=== PATIENT | female | born 1940 | race Caucasian/White ===

== ENCOUNTER 2017-10-25 08:31 | Inpatient (IN) | payer MEDICARE ==
[2017-10-25] MEDS ORDERED: Ondansetron INJ* 2 MG/ML VIAL IV ONE (08:43)
[2017-10-25] MEDS ORDERED: NS 0.9% 1000 ML* 1,000 ML IV ONE (08:43)
[2017-10-25] MEDS ORDERED: Ondansetron INJ* 2 MG/ML VIAL ONE (08:46)
[2017-10-25 09:14] LABS: ABS Basophils 0.1 10^3/ul (0-0.2); ABS Eosinophils 0.1 10^3/ul (0-0.6); ABS Lymphocytes 1.1 10^3/ul (1.0-4.8); ABS Monocytes 0.4 10^3/ul (0-0.8); ABS Neutrophils 4.6 10^3/ul (1.5-7.7); ABS Nucleated RBC 0 10^3/ul; Eosinophil % 2.2 % (0-6); Hematocrit 42 % (35-47); Hemoglobin 14.2 g/dl (12.0-16.0); Mean Corpuscular HGB Conc 34 g/dl (31-36); Mean Corpuscular Hemoglobin 30 pg (27-31); Mean Corpuscular Volume 88 fL (80-97); Mean Platelet Volume 9 um3 (7.4-10.4); Nucleated Red Blood Cells % 0.1; Platelet Count 188 10^3/ul (150-450); Red Blood Count 4.77 10^6/ul (4.0-5.4); Red Cell Distribution Width 14 % (10.5-15); White Blood Count 6.2 10^3/ul (3.5-10.8)
[2017-10-25 09:30] LABS: EGFR Non-African American 72.9 (>60)
--- NOTE | 2017-10-25 09:56 | RAD ---
HISTORY: Head trauma, fall COMPARISONS: None TECHNIQUE: Multiple contiguous axial CT scans were obtained of the head without intravenous contrast. FINDINGS: HEMORRHAGE/INFARCT: There is subarachnoid hemorrhage further described below. Elsewhere, there is no hemorrhage or acute infarct. MASSES/SHIFT: There is no mass or shift. EXTRA-AXIAL SPACES: There is a small amount of subarachnoid hemorrhage along the right frontal lobe and left parietal lobe, with a minimal amount pericallosal and right posterior temporal subarachnoid hemorrhage. There is no hemorrhage noted within the basal cisterns. SULCI AND VENTRICLES: There is a trace amount of intraventricular hemorrhage in the occipital horn of the right lateral ventricle.. CEREBRUM: There is hypoattenuation of the periventricular and subcortical white matter. BRAINSTEM: There are no focal parenchymal abnormalities. CEREBELLUM: There are no focal parenchymal abnormalities. VESSELS: The vessels are grossly normal. PARANASAL SINUSES: The paranasal sinuses are clear. ORBITS: The orbits are unremarkable. BONES AND SOFT TISSUE: There is soft tissue swelling along the right frontal scalp. OTHER: None IMPRESSION: 1. THERE IS A SMALL AMOUNT OF SUBARACHNOID HEMORRHAGE, WITH A SMALL AMOUNT OF INTRAVENTRICULAR HEMORRHAGE IN THE OCCIPITAL HORN OF THE RIGHT LATERAL VENTRICLE. THE PATTERN IS NONANEURYSMAL AND IS LIKELY RELATED TO THE HISTORY OF RECENT TRAUMA. 2. CHRONIC SMALL VESSEL ISCHEMIC CHANGES. 3. PRELIMINARY FINDINGS WERE DISCUSSED WITH DR. LUQUE AT APPROXIMATELY 9:50 AM ON OCTOBER 25, 2017.
--- NOTE | 2017-10-25 10:01 | RAD ---
INDICATION: Trauma. COMPARISON: There are no prior studies available for comparison. TECHNIQUE: Contiguous axial sections were obtained from the skull base through the T1 vertebra. Images were reconstructed in the sagittal and coronal planes. FINDINGS: The vertebra are in normal alignment. No prevertebral soft tissue swelling or fracture is seen. At the C3-C4 level there is mild posterior uncinate process spurring and hypertrophic changes within the facet joints. No significant spinal canal narrowing is present. There is [id number] neural foraminal narrowing on the right side. At the C4-C5 level there is mild posterior uncinate process spurring and hypertrophic changes within the facet joints. No significant spinal canal narrowing is present. There is mild to moderate neural foraminal narrowing on the right side. The C5-C6 level there is posterior uncinate process spurring which causes mild spinal canal narrowing on the left side. There is mild neural foraminal narrowing on the right side and moderate neural foraminal narrowing on the left side. At the C6-C7 level there is posterior uncinate process spurring. No significant spinal canal narrowing is present. There is moderate bilateral neural foraminal narrowing. IMPRESSION: 1. NO EVIDENCE FOR FRACTURE OR SUBLUXATION. 2. MODERATE CERVICAL SPONDYLOSIS.
[2017-10-25] MEDS ORDERED: Tetan/Diph/Pertus SYR(Tdap)* 0.5 ML SYR(BOOSTRIX) use SYR IM ONE (11:03)
[2017-10-25] MEDS: Acetaminophen TAB* 325 MG PO PRN ×3 (13:20→23:46)
[2017-10-25] MEDS: Ondansetron INJ* 2 MG/ML VIAL IV PRN ×2 (13:23→23:46)
--- NOTE | 2017-10-25 13:23 | RAD ---
Indication: Fall with loss of consciousness. Pelvis and hip pain. Post RIGHT total hip replacement. Comparison: March 16, 2010 radiographs. Technique: Multidetector CT pelvis without contrast. Multiplanar reformation with bone algorithm. Report: Artifact from the RIGHT total hip prosthesis. No RIGHT hip periprosthetic fracture or [place] LEFT hip fracture evident. Negative for pelvic fracture or articular malalignment. Negative for soft tissue edema or hematoma. Osteophytosis and advanced axial joint space narrowing of the LEFT hip with associated partial loss of femoral head sphericity and significant acetabular roof subchondral sclerosis and cystic change. Lumbar sacral spine degenerative spondylosis and facet joint osteoarthritis. Minimal grade 1 degenerative L4-L5 anterolisthesis. Colonic diverticulosis. Negative for free fluid within the [id number]. Small fat-containing umbilical and bilateral inguinal hernias without inflammatory change. Negative for dilatation of the distal ureters. Post hysterectomy. Unremarkable adnexal regions. IMPRESSION: No CT evidence for fracture. Negative for joint dislocation. No stigmata of RIGHT hip prosthesis loosening. 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
[2017-10-25] MEDS ORDERED: Perflutren Lipid Microsphere* 3 ML VIAL ONE (14:54)
--- NOTE | 2017-10-25 16:07 | ECHO ---
Patient: LINDA CANTU [facility] Rec#: [id number] : 1940 Date: 10/25/2017 Age: 77y Height: 162.56 cm / 64.0 in Weight: 82.55 kg / 181.9 lbs Sex: F BSA: 1.88 Room#: ICU8 Admit Date#: 10/25/2017 Type: Inpatient Referring: Desean Franco NP Reading: Lisa Vásquez MD Gristmiller: Alicia Wolf RDCS CC: Reynold Oneal MD Transthoracic Echocardiogram Indication: Syncope BP: 115/68 HR: 87 Rhythm: NSR with PVCs Findings History: Syncope. HTN,s/p lumpectomy for breast cancer. Technical Comments: The study quality is fair. Definity used to enhance images. The study is technically limited due to patient body habitus. Left Ventricle: The left ventricular chamber size is normal. Global left ventricular wall motion and contractility are within normal limits. There is normal left ventricular systolic function. The estimated ejection fraction is 55-60%. Abnormal left ventricular diastolic function is observed. Left Atrium: The left atrium is mildly dilated. Right Ventricle: The right ventricular cavity size is normal. The right ventricular global systolic function is normal. Right Atrium: The right atrial cavity size is normal. Aortic Valve: The aortic valve is trileaflet. There is no evidence of aortic valve thickening. There is no evidence of aortic regurgitation. There is no evidence of aortic stenosis. Mitral Valve: The mitral valve leaflets are mildly thickened. There is mild mitral regurgitation. There is no evidence of mitral stenosis. Tricuspid Valve: The tricuspid valve leaflets are normal. There is mild tricuspid regurgitation. There is evidence of mild pulmonary hypertension. There is no tricuspid stenosis. Pulmonic Valve: The pulmonic valve appears normal. Pericardium: A pericardial fat pad is visualized. Aorta: There is no dilatation of the ascending aorta. There is no dilatation of the aortic arch. There is no dilation of the aortic root. Pulmonary Artery: The main pulmonary artery appears normal. Venous: The venous system is not well visualized. Summary: There was not any prior study for comparison. Conclusions The left ventricular chamber size is normal. The left ventricular chamber size is normal. There is normal left ventricular systolic function. The estimated ejection fraction is 55-60%. The left atrium is mildly dilated. There is mild mitral regurgitation. There is mild tricuspid regurgitation. There is evidence of mild pulmonary hypertension. Measurements Name Value Normal Range RVIDd (AP) 2D 3 cm (0.9 - 2.6) RVDdMajor (2D) 3.2 cm (2.2 - 4.4) RAd ISD 4CH 4.8 cm (3.4 - 4.9) RA (A4C)W 3.3 cm (2.9 - 4.6) IVSd (2D) 0.9 cm (0.6 - 1) LVPWd (2D) 0.9 cm (0.6 - 1) LVIDd (2D) 3.9 cm (3.6 - 5.4) LVIDs (2D) 2.9 cm - LV FS (2D) 25 % (25 - 45) Aortic Annulus 1.8 cm (1.4 - 2.6) Ao root diameter (2D) 3 cm (2.1 - 3.5) Ascending Ao 3.1 cm (2.1 - 3.4) Aortic arch 2.8 cm (1.8 - 3.4) Descending Ao 0.5 cm - LA dimension (AP) 2D 3.5 cm (2.3 - 3.8) LAd ISD 4CH 6.4 cm (2.9 - 5.3) LA ISD 4CH W 3.9 cm (2.5 - 4.5) Name Value Normal Range LA ESV SP 4CH (A/L) 63 ml - LA ESV SP 2CH (A/L) 81 ml - LA ESV BP (A/L) 75 ml - LA ESV BP (A/L) index 39.86 ml/m2 - LA ESV SP 4CH (MOD) 59 ml - LA ESV SP 2CH (MOD) 79 ml - Name Value Normal Range MV E-wave Vmax 1 m/sec - MV deceleration time 132 msec - MV A-wave Vmax 1.1 m/sec - MV E:A ratio 0.96 ratio - LV septal e' Vmax 0.1 m/sec - LV lateral e' Vmax 0.1 m/sec - LV E:e' septal ratio 10 ratio - LV E:e' lateral ratio 10 ratio - Name Value Normal Range AV Vmax 1.9 m/sec - AV VTI 43.3 cm - AV peak gradient 13.75 mmHg - AV mean gradient 7.45 mmHg - LVOT Vmax 1.3 m/sec - LVOT VTI 30.4 cm - LVOT peak gradient 7.21 mmHg - LVOT mean gradient 3.55 mmHg - Name Value Normal Range MR Vmax 3.5 m/sec - MR VTI 99 cm - Name Value Normal Range TR Vmax 2.6 m/sec - TR peak gradient 26 mmHg - RAP 8 mmHg - RVSP 34 mmHg - Name Value Normal Range PV Vmax 1 m/sec - PV peak gradient 3.95 mmHg -
--- NOTE | 2017-10-25 17:03 | ED ---
Giancarlo Toth Thomas, scribed for Wilberto Baeza MD on 10/25/17 at 0855 . Head Injury - HPI Summary HPI Summary: The patient is a 77 year old female presenting after she struck her head during an accidental fall that occurred this morning. She had loss of consciousness after striking her head. She has a laceration to her right eyebrow. She denies near-syncope, headache, chest pain, and palpitations before the fall. - History Of Current Complaint Chief Complaint: EDHeadInjury Stated Complaint: FALL, Time Seen by Provider: 10/25/17 08:41 Hx Obtained From: Patient Mechanism Of Injury: Fall From A Standing Position Onset/Duration: Started Hours Ago - onset this AM, Still Present Severity Initially: Mild Pain Intensity: 3 Pain Scale Used: 0-10 Numeric Location: Discrete At: - head Aggravating Factor(s): Other: - Unknown Alleviating Factor(s): Other: - Nothing Associated Signs And Symptoms: LOC Duration Unknown, Other: - Laceration (right elbow); NEGATIVE: near-syncope, BREWSTER, CP, palpitations - Allergies/Home Medications Allergies/Adverse Reactions: Allergies Allergy/AdvReac Type Severity Reaction Status Date / Time No Known Allergies Allergy Verified 10/25/17 08:41 Home Medications: Home Medications Calcium Carbonate/Vitamin D3 [Calcium 600 + Vit D Tablet] 1 each PO DAILY [History Confirmed 10/25/17] Lisinopril/HCTZ 20/12.5(NF) [Zestoretic 20/12.5(NF)] 1 tab PO DAILY 10/25/17 [ History Confirmed 10/25/17] Omeprazole CAP* [Prilosec CAP* 20 MG] 20 mg PO DAILY 10/25/17 [History Confirmed 10/25/17] amLODIPine TAB* [Norvasc 5 mg TAB*] 5 mg PO DAILY 10/25/17 [History Confirmed ] PMH/Surg Hx/FS Hx/Imm Hx Endocrine/Hematology History: Reports: Hx Anemia - DAILY IRON FOR Denies: Hx Diabetes Cardiovascular History: Reports: Hx Hypertension - ON MEDICATION FOR Denies: Hx Pacemaker/ICD History: Reports: Hx Kidney Infection - FALL-2013 Denies: Hx Renal Disease Sensory History: Reports: Hx Cataracts - BILATERAL, Hx Contacts or Glasses - GLASSES Denies: Hx Hearing Aid Opthamlomology History: Reports: Hx Cataracts - BILATERAL, Hx Contacts or Glasses - GLASSES Psychiatric History: Denies: Hx Panic Disorder - Cancer History Cancer Type, Location and Year: Rt BREAST - LUMPECTOMY Hx Chemotherapy: No Hx Radiation Therapy: Yes - [facility] - Surgical History Surgery Procedure, Year, and Place: VEIN STRIPPING BILATERAL. HYSTERECTOMY. TONSILECTOMY. Rt BREAST LUMPECTOMY- W/ 1 LYMPH NODE REMOVED -2010- MALIGNANT W / RADTION TREATMENT ALSO Lt LUMPECTOMY - - BENIGN. MOLE - PRE CANCEROUS REMOVED FROM Lt EAR Hx Anesthesia Reactions: No Infectious Disease History: No Infectious Disease History: Denies: Traveled Outside the [place] in Last 30 Days - Family History Known Family History: Positive: Other - Patient denies relevant FHx - Social History Lives: With Family Alcohol Use: Occasionally Substance Use Type: Reports: None Smoking Status (MU): Never Smoked Tobacco Review of Systems Negative: Fever Negative: Palpitations, Chest Pain Neurological: Other - Head injury, loss of consciousness Negative: Headache, Syncope - near Positive: Other - Laceration to right eyebrow All Other Systems Reviewed And Are Negative: Yes Physical Exam - Summary Physical Exam Summary: VITAL SIGNS: Reviewed. GENERAL: Patient is a well-developed and nourished female who is lying comfortable in the stretcher. Patient is not in any acute respiratory distress. HEAD AND FACE: There is an approximately 1 cm laceration to the right eyebrow. There is some swelling and tenderness to this area. No ecchymosis, hematomas or skull depressions. No sinus tenderness. EYES: PERRLA, EOMI x 2, No injected conjunctiva, no nystagmus. EARS: Hearing grossly intact. Ear canals and tympanic membranes are within normal limits. MOUTH: Oropharynx within normal limits. NECK: Supple, trachea is midline, no adenopathy, no JVD, no carotid bruit, no c- spine tenderness, neck with full ROM. CHEST: Symmetric, no tenderness at palpation LUNGS: Clear to auscultation bilaterally. No wheezing or crackles. CVS: Regular rate and rhythm, S1 and S2 present, no murmurs or gallops appreciated. ABDOMEN: Soft, non-tender. No signs of distention. No rebound no guarding, and no masses palpated. Bowel sounds are normal. EXTREMITIES: FROM in all major joints, no edema, no cyanosis or clubbing. NEURO: Alert and oriented x 3. No acute neurological deficits. Speech is normal and follows commands. SKIN: Dry and warm Triage Information Reviewed: Yes Vital Signs On Initial Exam: Initial Vitals Temp Pulse Resp BP Pulse Ox 97.4 F 66 20 156/76 96 10/25/17 08:41 10/25/17 08:41 10/25/17 08:41 10/25/17 08:41 10/25/17 08:41 Vital Signs Reviewed: Yes Procedures - Laceration/Wound Repair 1 Location: Other - right eyebrow Description: Linear Irrigated w/ Saline (ccs): 500 Closure: Single Layer Suture Type: Nylon - 5-0 Number of Sutures: 6 Diagnostics - Vital Signs Vital Signs Temp Pulse Resp BP Pulse Ox 10/25/17 08:41 97.4 F 66 20 156/76 96 - Laboratory Lab Results: Lab Results 10/25/17 10/25/17 Range/Units 09:03 09:03 WBC 6.2 (3.5-10.8) 10^3/ul RBC 4.77 (4.0-5.4) 10^6/ul Hgb 14.2 (12.0-16.0) g/dl Hct 42 (35-47) % MCV 88 (80-97) fL MCH 30 (27-31) pg MCHC 34 (31-36) g/dl RDW 14 (10.5-15) % Plt Count 188 (150-450) 10^3/ul MPV 9 (7.4-10.4) um3 Neut % (Auto) 73.9 (38-83) % Lymph % (Auto) 17.0 L (25-47) % Craig % (Auto) 5.9 (1-9) % Eos % (Auto) 2.2 (0-6) % Baso % (Auto) 1.0 (0-2) % Absolute Neuts (auto) 4.6 (1.5-7.7) 10^3/ul Absolute Lymphs (auto) 1.1 (1.0-4.8) 10^3/ul Absolute Monos (auto) 0.4 (0-0.8) 10^3/ul Absolute Eos (auto) 0.1 (0-0.6) 10^3/ul Absolute Basos (auto) 0.1 (0-0.2) 10^3/ul Absolute Nucleated RBC 0 10^3/ul Nucleated RBC % 0.1 Sodium 134 (133-145) mmol/L Potassium 4.0 (3.5-5.0) mmol/L Chloride 102 (101-111) mmol/L Carbon Dioxide 26 (22-32) mmol/L Anion Gap 6 (2-11) mmol/L BUN 16 (6-24) mg/dL Creatinine 0.77 (0.51-0.95) mg/dL Est GFR ( Amer) 93.7 (>60) Est GFR (Non-Af Amer) 72.9 (>60) BUN/Creatinine Ratio 20.8 H (8-20) Glucose 117 H (70-100) mg/dL Calcium 9.5 (8.6-10.3) mg/dL Total Bilirubin 0.40 (0.2-1.0) mg/dL AST 16 (13-39) U/L ALT 9 (7-52) U/L Alkaline Phosphatase 78 (34-104) U/L Total Creatine Kinase 41 (10-223) U/L Troponin I 0.00 (<0.04) ng/mL Total Protein 7.1 (6.4-8.9) g/dL Albumin 4.1 (3.2-5.2) g/dL Globulin 3.0 (2-4) g/dL Albumin/Globulin Ratio 1.4 (1-3) Result Diagrams: 10/25/17 09:03 10/25/17 09:03 Lab Statement: Any lab studies that have been ordered have been reviewed, and results considered in the medical decision making process. - CT CT Brain CT Interpretation: Positive (See Comments) - 1. THERE IS A SMALL AMOUNT OF SUBARACHNOID HEMORRHAGE, WITH A SMALL AMOUNT OF INTRAVENTRICULAR HEMORRHAGE IN THE OCCIPITAL HORN OF THE RIGHT LATERAL VENTRICLE. THE PATTERN IS NONANEURYSMAL AND IS LIKELY RELATED TO THE HISTORY OF RECENT TRAUMA. 2. CHRONIC SMALL VESSEL ISCHEMIC CHANGES. Dr. Baeza has reviewed this report. CT Interpretation Completed By: Radiologist CT C-Spine CT Interpretation: No Acute Changes - 1. NO EVIDENCE FOR FRACTURE OR SUBLUXATION. 2. MODERATE CERVICAL SPONDYLOSIS. Dr. Baeza has reviewed this report. CT Interpretation Completed By: Radiologist - EKG 09:02 Cardiac Rate: NL EKG Rhythm: Sinus Rhythm - at 72 BPM EKG Interpretation: No ST elevations. Head Injury Course/Dx Assessment/Plan: The patient is a 77 year old female presenting after she struck her head during an accidental fall that occurred this morning. She had loss of consciousness after striking her head. She has a laceration to her right eyebrow. Test results are without significant abnormalities. CT Brain shows 1. THERE IS A SMALL AMOUNT OF SUBARACHNOID HEMORRHAGE, WITH A SMALL AMOUNT OF INTRAVENTRICULAR HEMORRHAGE IN THE OCCIPITAL HORN OF THE RIGHT LATERAL VENTRICLE. THE PATTERN IS NONANEURYSMAL AND IS LIKELY RELATED TO THE HISTORY OF RECENT TRAUMA. 2. CHRONIC SMALL VESSEL ISCHEMIC CHANGES. CT C-Spine shows 1. NO EVIDENCE FOR FRACTURE OR SUBLUXATION. 2. MODERATE CERVICAL SPONDYLOSIS. I discussed the CT Head with Dr. Yañez, neurosurgery, who reports that he is not very concerned about the bleed. I repaired the laceration without any complications. Because of the history of trauma, syncope , and hemorrhagic CVA, I discussed the test results and findings with Dr. Curiel , who accepts the patient for admission. The patient is hemodynamically stable and alert and oriented x 3. - Diagnoses Differential Diagnosis/HQI/PQRI: Cerebral Contusion, Concussion With LOC, Contusion, Hematoma, Intracranial Bleed Provider Diagnoses: Hemorrhagic cerebrovascular accident (CVA), Mechanical fall, Laceration of face - Physician Notifications Discussed Care Of Patient With: Michael aYñez Time Discussed With Above Provider: 10:31 Instructed by Provider To: Other - I discussed the case with Dr. Yañez, neurosurgery. He recommends discharge. At 11:03, I consulted with Dr. Curiel, hospitalist, who will admit the patient. - Critical Care Time Critical Care Time: 75-104 min Discharge - Discharge Plan Condition: Stable Disposition: ADMITTED TO [facility] The documentation as recorded by the Giancarlo bustamante Thomas accurately reflects the service I personally performed and the decisions made by , Wilberto Baeza MD.
[2017-10-25 17:45] LABS: Urine Appearance Cloudy; Urine Blood Negative (Negative); Urine Color Yellow; Urine Ketones Negative (Negative); Urine Protein Negative (Negative); Urine Specific Gravity 1.011 (1.010-1.030); Urine Urobilinogen Negative (Negative)
--- NOTE | 2017-10-25 21:18 | HP ---
CC: Dr. Oneal; Dr. Yañez * HISTORY AND PHYSICAL: DATE OF ADMISSION: 10/25/17 PRIMARY CARE PROVIDER: Dr. Oneal. CONSULTING NEUROSURGEON: Dr. Yañez. ATTENDING PHYSICIAN WHILE IN THE HOSPITAL: Reynold Edward MD * (report dictated by Dseean Franco NP) CHIEF COMPLAINT: Fall. HISTORY OF PRESENT ILLNESS: Mrs. Byrd is a 77-year-old female patient. She carries a history of hypertension, breast cancer, anemia, and questionable history of nephrolithiasis. She comes into the ED today. She states yesterday she put up some curtains at home that were longer than what was normally she had hung up by her door. She was hungry this morning and her and her decided to go out to breakfast. She walked out the door. She remembers opening the door. The next thing she remembers she was in an ambulance. She states that she fell. She knew she had fallen because she had significant pain and swelling along the right side of her face. She denied any chest pain prior to or after the fall. She states that she was told that after the fall she sat up. The most pain she had was really in her right side of her head. She had a headache. She denied having again any chest pain prior to or after. She is unsure if she fainted or passed out. She states that she had no palpitations. She did not feel lightheaded before the fall, she said she just felt really hungry. She remembers like she was in the ambulance. She remembers getting driven into the hospital today. There has been no recent fevers, cough, chills. No vomiting or diarrhea and again no change in meds. She came into the ED. It was noted that she had a significant trauma in the right side of her face, she had a laceration just above her right eyebrow and it was sutured. In addition to this, it was also noted that she appeared to have intracranial hemorrhage and because of this we were asked to evaluate for admission. PAST MEDICAL HISTORY: Significant for; 1. Hypertension. 2. Breast cancer. 3. Anemia. 4. Question of nephrolithiasis. PAST SURGICAL HISTORY: 1. She has had a hysterectomy. 2. Appendectomy. 3. Right total hip replacement. 4. She has had bilateral lower extremity vein stripping. 5. She has had a right breast lumpectomy. HOME MEDICATIONS: According to list provided includes; 1. Omeprazole 20 mg daily. 2. Calcium 1 tablet p.o. daily. 3. Norvasc 5 mg daily. 4. Lisinopril/hydrochlorothiazide 1 tablet p.o. daily. ALLERGIES TO MEDICATIONS: Include no known drug allergies. FAMILY HISTORY: Mother had cancer as did her brother, and her father's history is unknown as he left when she was 17. SOCIAL HISTORY: She does not smoke, does not drink. Surrogate decision maker is her . REVIEW OF SYSTEMS: There was no documented fever. She denied having any significant weight change. She denies having any double vision. There is no ear discharge. She denies having any rhinorrhea. There is no sore throat. No thyroid enlargement. She denies having any chest pain. There is no palpitations. No shortness of breath. There is no abdominal pain. No nausea or vomiting. No dysuria. No frequency. There is no seizure. She does question of loss of consciousness. Review of 14 systems completed, all others negative. PHYSICAL EXAMINATION GENERAL: At this time, Mrs. Byrd is a 77-year-old female patient. She appears to be well nourished, well developed. She is sitting in the ED stretcher. She does not appear to be in any acute distress. VITAL SIGNS: Blood pressure 129/72, pulse 84, respirations 18, O2 sat 96%, and temperature 97.4. HEENT: Head: She does have again noted an abrasion and laceration just now sutured to the right orbital area just above the right eyebrow. There is ecchymosis there along the right eye and some swelling. The laceration is approximated, but otherwise atraumatic. Eyes: EOMs intact. Pupils are equal and reactive to light. Throat: Oral mucosa appears to be moist. No oropharyngeal erythema. NECK: Supple. LUNGS: Clear to auscultation bilaterally. No wheezes, rales, or rhonchi. HEART: Sounds S1 and S2. Regular rate and rhythm. No murmurs, rubs, or gallops. ABDOMEN: Soft. It was flat. Nontender. Bowel sounds were present. EXTREMITIES: Pulses were 2+ throughout. She is moving all 4 extremities with 5 /5 strength. NEUROLOGIC: The patient is awake. She is alert. She is oriented x3. Home Help Aide are equal. Tongue midline. [id number] and [id number] intact bilaterally. No gross focal deficits. SKIN: Intact with the exception she has laceration to the right orbital area. LABORATORY DATA: Today WBC of 6.2, RBC of 4.77, hemoglobin 14.2, hematocrit 42 , and platelet count of 188,000. Sodium is 134, potassium is 4, chloride of 102 , bicarbonate 26, BUN 16, creatinine 0.77, glucose 117, calcium 9.5, total bilirubin 0.4, AST 16, ALT 9, alkaline phosphatase 78, albumin of 4.1. IMAGING: She did have EKG obtained today, which revealed normal sinus rhythm, rate of 72. No ST elevation or T-wave inversions were noted. She did have brain CT. Impression: There is a small amount of subarachnoid hemorrhage with a small amount of intraventricular hemorrhage in the occipital horn of the right lateral ventricle. The pattern is nonaneurysmal and likely related to history of recent trauma. Chronic small vessel ischemic changes. Formal read and findings were discussed with Dr. Baeza. She did have a cervical spine CT obtained today that showed no evidence for fracture, subluxation, moderate cervical spondylosis. Old medical records reviewed. ASSESSMENT AND PLAN: Mrs. Byrd is a 77-year-old female patient coming into the ED today with complaints of a fall, now found to have a small intracranial hemorrhage. We were asked to evaluate for admission. She will be admitted under inpatient status for: 1. Intracranial hemorrhage. At this point, I will place the patient in ICU. She is neurologically intact thankfully and it is a small bleed, but I would want to watch closely in case there is any deterioration. We will maintain her blood pressure. I would like to try to keep it less than 160. We will monitor neuro checks routinely and again, we will get neurosurgical input. I did place a consult to them and consider repeat imaging in 24 hours to assess the stability of the bleed and we will continue to follow closely. 2. Question syncope. Again, she does not remember the fall. I question if she hit her head and became concussed and that is why she does not remember the fall, but she certainly could have syncopized. I do think she could have had syncope. I do think I am going to cycle at least 2 enzymes; heart enzymes, troponins. In addition to this, we will get an echo and orthostatics. 3. Right hip pain. She is now having some pain in the right hip. The right leg does not appear to be shortened or rotated, but I do think we should get a CT of the pelvis as she has had a right total hip replacement and that is where she is having pain. If there is any abnormalities with this, then certainly we will get in touch with Orthopedic Surgery. 4. Hypertension. Continue meds as prescribed. 5. Breast cancer. Follow up with primary. 6. Anemia. Her H and H is stable. We will monitor. 7. DVT prophylaxis. She will be placed on SCDs. 8. Code status. Full code. 9. Fluids, electrolytes, and nutrition. She can have a heart healthy diet. TIME SPENT: Time spent on the admission was 60 minutes, greater than half the time was spent [id number] with the patient obtaining my history of physical; the other half time was spent going over the plan of care with the patient and implementing plan of care. I did discuss the plan of care with my attending, Dr. Edward, in agreement. DESEAN FRANCO, YARA [id number]/[facility] #: [id number] JANIE
[2017-10-26 06:24] LABS: ABS Basophils 0 10^3/ul (0-0.2); ABS Eosinophils 0.1 10^3/ul (0-0.6); ABS Lymphocytes 1.3 10^3/ul (1.0-4.8); ABS Monocytes 0.5 10^3/ul (0-0.8); ABS Neutrophils 5.2 10^3/ul (1.5-7.7); ABS Nucleated RBC 0 10^3/ul; Eosinophil % 1.3 % (0-6); Hematocrit 37 % (35-47); Hemoglobin 12.9 g/dl (12.0-16.0); Lymphocyte % 18.6 % (25-47); Mean Corpuscular HGB Conc 34 g/dl (31-36); Mean Corpuscular Hemoglobin 30 pg (27-31); Mean Corpuscular Volume 86 fL (80-97); Mean Platelet Volume 9 um3 (7.4-10.4); Nucleated Red Blood Cells % 0.1; Platelet Count 189 10^3/ul (150-450); Red Blood Count 4.35 10^6/ul (4.0-5.4); Red Cell Distribution Width 13 % (10.5-15); White Blood Count 7.2 10^3/ul (3.5-10.8)
[2017-10-26 06:36] LABS: INR 0.97 (0.77-1.02)
[2017-10-26 06:39] LABS: EGFR Non-African American 88.6 (>60)
[2017-10-26] MEDS: Lisinopril TAB* 10 MG PO SCH (07:58)
[2017-10-26] MEDS: Omeprazole CAP* 20 MG PO SCH (07:58)
[2017-10-26] MEDS: Hydrochlorothiazide TAB* 25 MG PO SCH (07:58)
[2017-10-26] MEDS: amLODIPine TAB* 5 MG PO SCH (07:58)
--- NOTE | 2017-10-26 08:29 | RAD ---
HISTORY: Follow-up intracranial hemorrhage COMPARISONS: October 25, 2017 TECHNIQUE: Multiple contiguous axial CT scans were obtained of the head without intravenous contrast. FINDINGS: HEMORRHAGE/INFARCT: There is minimal residual subarachnoid hemorrhage along the left parietal lobe, decreased from the previous examination. There is no parenchymal hemorrhage. Elsewhere, there is no hemorrhage or acute infarct. MASSES/SHIFT: There is no mass or shift. EXTRA-AXIAL SPACES: As noted above, there is minimal residual subarachnoid hemorrhage along the sulci of the left parietal lobe, decreased from the previous examination. SULCI AND VENTRICLES: There is minimal residual intraventricular hemorrhage along the occipital horn of the right lateral ventricle. There is no ventriculomegaly. CEREBRUM: There is hypoattenuation of the periventricular and subcortical white matter. BRAINSTEM: There are no focal parenchymal abnormalities. CEREBELLUM: There are no focal parenchymal abnormalities. VESSELS: The vessels are grossly normal. PARANASAL SINUSES: The paranasal sinuses are clear. ORBITS: The orbits are unremarkable. BONES AND SOFT TISSUE: There is soft tissue swelling along the right frontal scalp. OTHER: None IMPRESSION: MINIMAL RESIDUAL SUBARACHNOID HEMORRHAGE AND INTRAVENTRICULAR HEMORRHAGE, DECREASED FROM THE PREVIOUS EXAMINATION.
[2017-10-26] MEDS: Acetaminophen TAB* 325 MG PO PRN ×2 (10:39→18:27)
[2017-10-26] MEDS: Ondansetron INJ* 2 MG/ML VIAL IV PRN ×2 (11:15→20:05)
--- NOTE | 2017-10-26 12:36 | PN ---
Subjective Date of Service: 10/26/17 Interval History: Pt is feeling ok. She has had an unrelenting headache. She has had only tylenol for the pain which has helped minimally. She has also felt nauseated today. Objective Active Medications: Acetaminophen (Tylenol Tab*) 650 mg PO Q4H PRN PRN Reason: FEVER/PAIN Last Admin: 10/26/17 10:39 Dose: 650 mg Amlodipine Besylate (Norvasc Tab*) 5 mg PO DAILY [facility] Last Admin: 10/26/17 07:58 Dose: 5 mg Hydrochlorothiazide (Hydrodiuril Tab*) 12.5 mg PO DAILY [facility] Last Admin: 10/26/17 07:58 Dose: 12.5 mg Lisinopril (Prinivil Tab*) 20 mg PO DAILY [facility] Last Admin: 10/26/17 07:58 Dose: 20 mg Omeprazole (Prilosec Cap*) 20 mg PO DAILY [facility] Last Admin: 10/26/17 07:58 Dose: 20 mg Ondansetron HCl (Zofran Inj*) 4 mg IV Q6H PRN PRN Reason: NAUSEA Last Admin: 10/26/17 11:15 Dose: 4 mg Vital Signs - 8 hr 10/26/17 10/26/17 10/26/17 05:00 06:00 06:01 Temperature Pulse Rate 62 69 64 Respiratory 13 24 15 Rate Blood Pressure 115/60 131/81 (mmHg) O2 Sat by Pulse 92 95 93 Oximetry 10/26/17 10/26/17 10/26/17 07:00 07:42 08:00 Temperature 99.4 F Pulse Rate 60 67 Respiratory 14 17 Rate Blood Pressure 138/68 144/76 (mmHg) O2 Sat by Pulse 95 96 Oximetry 10/26/17 10/26/17 10/26/17 09:00 09:48 10:00 Temperature Pulse Rate 61 60 Respiratory 16 18 Rate Blood Pressure 147/84 (mmHg) O2 Sat by Pulse 96 96 93 Oximetry 10/26/17 10/26/17 10/26/17 10:01 11:00 11:01 Temperature Pulse Rate 62 63 63 Respiratory 14 18 19 Rate Blood Pressure 115/81 158/87 (mmHg) O2 Sat by Pulse 95 94 94 Oximetry 10/26/17 10/26/17 11:50 12:00 Temperature 99.4 F Pulse Rate 64 Respiratory 20 Rate Blood Pressure 141/77 (mmHg) O2 Sat by Pulse 95 Oximetry Oxygen Devices in Use Now: None Appearance: Elderly female sitting up in bed sleeping, awakens to voice, NAD Eyes: No Scleral Icterus Ears/Nose/Mouth/Throat: Mucous Membranes Moist Respiratory: Symmetrical Chest Expansion and Respiratory Effort, Clear to Auscultation Cardiovascular: NL Sounds; No Murmurs; No JVD, RRR, No Edema Abdominal: NL Sounds; No Tenderness; No Distention Extremities: No Clubbing, Cyanosis Skin: No Nodules or Sclerosis, - - +bruise around R eye, laceration lateral to R eye Neurological: Alert and Oriented x 3 Result Diagrams: 10/26/17 05:58 10/26/17 05:58 Additional Lab and Data: Lab Results 10/25/17 10/25/17 Range/Units 09:03 09:03 WBC 6.2 (3.5-10.8) 10^3/ul RBC 4.77 (4.0-5.4) 10^6/ul Hgb 14.2 (12.0-16.0) g/dl Hct 42 (35-47) % MCV 88 (80-97) fL MCH 30 (27-31) pg MCHC 34 (31-36) g/dl RDW 14 (10.5-15) % Plt Count 188 (150-450) 10^3/ul MPV 9 (7.4-10.4) um3 Neut % (Auto) 73.9 (38-83) % Lymph % (Auto) 17.0 L (25-47) % [place] % (Auto) 5.9 (1-9) % Eos % (Auto) 2.2 (0-6) % Baso % (Auto) 1.0 (0-2) % Absolute Neuts (auto) 4.6 (1.5-7.7) 10^3/ul Absolute Lymphs (auto) 1.1 (1.0-4.8) 10^3/ul Absolute Monos (auto) 0.4 (0-0.8) 10^3/ul Absolute Eos (auto) 0.1 (0-0.6) 10^3/ul Absolute Basos (auto) 0.1 (0-0.2) 10^3/ul Absolute Nucleated RBC 0 10^3/ul Nucleated RBC % 0.1 Sodium 134 (133-145) mmol/L Potassium 4.0 (3.5-5.0) mmol/L Chloride 102 (101-111) mmol/L Carbon Dioxide 26 (22-32) mmol/L Anion Gap 6 (2-11) mmol/L BUN 16 (6-24) mg/dL Creatinine 0.77 (0.51-0.95) mg/dL Est GFR ( Amer) 93.7 (>60) Est GFR (Non-Af Amer) 72.9 (>60) BUN/Creatinine Ratio 20.8 H (8-20) Glucose 117 H (70-100) mg/dL Calcium 9.5 (8.6-10.3) mg/dL Total Bilirubin 0.40 (0.2-1.0) mg/dL AST 16 (13-39) U/L ALT 9 (7-52) U/L Alkaline Phosphatase 78 (34-104) U/L Total Creatine Kinase 41 (10-223) U/L Troponin I 0.00 (<0.04) ng/mL Total Protein 7.1 (6.4-8.9) g/dL Albumin 4.1 (3.2-5.2) g/dL Globulin 3.0 (2-4) g/dL Albumin/Globulin Ratio 1.4 (1-3) Microbiology and Other Data: Microbiology 10/25/17 13:40 Nasal Screen MRSA (PCR)([facility]) - Final Nasal Mrsa Not Detected Assess/Plan/Problems-Billing Ms Byrd is a 77 yo F who has a h/o HTN and breast cancer who presented to the ER after she fell at home hitting the right side of her head with subsequent laceration and was found to have a small subarachnoid hemorrhage. - Patient Problems (1) Fall Current Visit: Yes Status: Acute Comment: Unclear if the patient had a syncopal episode or if she tripped over the curtains. Her thinks she may have tripped as the curtains were askew. Echo without any significant findings and no significant tele alarms. No further work up at this time. (2) Subarachnoid hemorrhage following injury Current Visit: Yes Status: Acute Comment: Bleed appears to be resolving today. Monitor neuro checks q8hr. Should be ready to go home tomorrow. Hold on any antiplatelets/anticoagulants for at least 2 weeks. (3) Concussion Current Visit: Yes Status: Acute Code(s): S06.0X9A - CONCUSSION W LOSS OF CONSCIOUSNESS OF UNSP DURATION, INIT SNOMED Code(s): 940128185 Comment: The patient likely suffered a concussion after falling and hitting her head. She continues to have headache and nausea. Will add tramadol for pain control. Continue neuro checks but decrease to q8hr. (4) HTN (hypertension) Current Visit: Yes Status: Acute Code(s): I10 - ESSENTIAL (PRIMARY) HYPERTENSION SNOMED Code(s): 74024800 Comment: BP is under fair control. Continue current medication regimen. (5) DVT prophylaxis Current Visit: Yes Status: Acute Code(s): [id number] - SNOMED Code(s): 132466352 Comment: SCDs (6) Full code status Current Visit: Yes Status: Acute Code(s): Z78.9 - OTHER SPECIFIED HEALTH STATUS SNOMED Code(s): 935930730
[2017-10-26] MEDS: traMADol TAB* 50 MG PO PRN (14:01)
[2017-10-26] MEDS ORDERED: Morphine INJ* 2 MG/ML 1 ML SYRINGE (TWO MG - NEW SYRINGE VERSION) IV ONE (19:37)
[2017-10-26] MEDS ORDERED: Morphine INJ* 2 MG/ML 1 ML CARPUJECT IV ONE (20:00)
[2017-10-27] MEDS: Ondansetron INJ* 2 MG/ML VIAL IV PRN ×3 (03:09→16:51)
[2017-10-27] MEDS: traMADol TAB* 50 MG PO PRN (03:50)
[2017-10-27] MEDS: amLODIPine TAB* 5 MG PO SCH (08:10)
[2017-10-27] MEDS: Omeprazole CAP* 20 MG PO SCH (08:10)
[2017-10-27] MEDS: Lisinopril TAB* 10 MG PO SCH (08:10)
[2017-10-27] MEDS: Hydrochlorothiazide TAB* 25 MG PO SCH (08:10)
[2017-10-27] MEDS ORDERED: oxyCODONE TAB* 5 MG TAB PO PRN (10:08)
[2017-10-27] MEDS ORDERED: Calcium Carbonate CHEW TAB* 500 MG (TUMS) PO PRN (10:09)
[2017-10-27] MEDS: Acetaminophen TAB* 325 MG PO PRN (16:50)
--- NOTE | 2017-10-27 17:00 | PN ---
Subjective Date of Service: 10/27/17 Interval History: Patient has intermittent headache and nausea which does not respond to antiemetics. Patient states that she gets partial relief with headaches with tylenol but denies recent use of tramadol. Patient also complains of intermittent 3/10 epigastric pain with radiation to her back without palliative or provoking factors which does not radiate. Patient also complains of pain in right hip where she fell. Patient denies F/C, Diarrhea, Constipation, weakness, changes in vision, dizziness, falls, CP or SOB. Family History: Unchanged from Admission Social History: Unchanged from Admission Past Medical History: Unchanged from Admission Objective Active Medications: Acetaminophen (Tylenol Tab*) 650 mg PO Q4H PRN PRN Reason: FEVER/PAIN Last Admin: 10/27/17 16:50 Dose: 650 mg Amlodipine Besylate (Norvasc Tab*) 5 mg PO DAILY [facility] Last Admin: 10/27/17 08:10 Dose: 5 mg Calcium Carbonate (Tums*) 500 mg PO Q4H PRN PRN Reason: INDIGESTION Hydrochlorothiazide (Hydrodiuril Tab*) 12.5 mg PO DAILY [facility] Last Admin: 10/27/17 08:10 Dose: 12.5 mg Lisinopril (Prinivil Tab*) 20 mg PO DAILY [facility] Last Admin: 10/27/17 08:10 Dose: 20 mg Omeprazole (Prilosec Cap*) 20 mg PO DAILY [facility] Last Admin: 10/27/17 08:10 Dose: 20 mg Ondansetron HCl (Zofran Inj*) 4 mg IV Q6H PRN PRN Reason: NAUSEA Last Admin: 10/27/17 16:51 Dose: 4 mg Oxycodone HCl (Roxycodone Tab*) 5 mg PO Q6H PRN PRN Reason: PAIN Vital Signs - 8 hr 10/27/17 11:06 Temperature 97.4 F Pulse Rate 68 Respiratory 16 Rate Blood Pressure 139/76 (mmHg) O2 Sat by Pulse 96 Oximetry Oxygen Devices in Use Now: None Appearance: Patient is a 77yo female who appears stated age and is sitting in the bed in [facility]. Eyes: No Scleral Icterus, PERRLA Ears/Nose/Mouth/Throat: NL Teeth, Lips, Gums, Clear Oropharnyx, Mucous Membranes Moist Neck: NL Appearance and Movements; NL JVP, Trachea Midline Respiratory: Symmetrical Chest Expansion and Respiratory Effort, Clear to Auscultation Cardiovascular: NL Sounds; No Murmurs; No JVD, RRR, No Edema Abdominal: NL Sounds; No Tenderness; No Distention, No Hepatosplenomegaly Lymphatic: No Cervical Adenopathy Extremities: No Edema, No Clubbing, Cyanosis Skin: No Rash or Ulcers, No Nodules or Sclerosis Neurological: Alert and Oriented x 3, NL Sensation, NL Muscle Strength and Tone , - - CN II-XII intact. Result Diagrams: 10/26/17 05:58 10/26/17 05:58 Additional Lab and Data: Lab Results Microbiology and Other Data: Microbiology 10/25/17 13:40 Nasal Screen MRSA (PCR)([facility]) - Final Nasal Mrsa Not Detected Assess/Plan/Problems-Billing Ms Byrd is a 77 yo F who has a h/o HTN and breast cancer who presented to the ER after she fell at home hitting the right side of her head with subsequent laceration and was found to have a small subarachnoid hemorrhage. Patient has continued significant intermittent nausea and headache. - Patient Problems (1) Concussion Current Visit: Yes Status: Acute Code(s): S06.0X9A - CONCUSSION W LOSS OF CONSCIOUSNESS OF UNSP DURATION, INIT SNOMED Code(s): 625770312 Comment: The patient likely suffered a concussion after falling and hitting her head. She continues to have headache and nausea. Tramadol changed to Oxycodone due to head trauma and possibility of seizures. Continue neuro checks but decrease to q8hr. (2) Fall Current Visit: Yes Status: Acute Comment: Unclear if the patient had a syncopal episode or if she tripped over the curtains. Her thinks she may have tripped as the curtains were askew. Echo without any significant findings and no significant tele alarms. No further work up at this time. (3) HTN (hypertension) Current Visit: Yes Status: Acute Code(s): I10 - ESSENTIAL (PRIMARY) HYPERTENSION SNOMED Code(s): 09290906 Comment: BP is under fair control. Continue current medication regimen. (4) Subarachnoid hemorrhage following injury Current Visit: Yes Status: Acute Comment: Bleed appears to be resolving today. Monitor neuro checks q8hr. Hold on any antiplatelets/anticoagulants for at least 2 weeks. Patient felt she was not ready to go home due to intermittent nausea which was not controlled with medication. (5) DVT prophylaxis Current Visit: Yes Status: Acute Code(s): [id number] - SNOMED Code(s): 615899388 Comment: SCDs (6) Full code status Current Visit: Yes Status: Acute Code(s): Z78.9 - OTHER SPECIFIED HEALTH STATUS SNOMED Code(s): 257095132 Status and Disposition: Patient is admitted inpatient. Hopeful discharge tomorrow.
[2017-10-28 07:59] VITALS: BP 139/73
[2017-10-28] MEDS: Hydrochlorothiazide TAB* 25 MG PO SCH (09:42)
[2017-10-28] MEDS: Lisinopril TAB* 10 MG PO SCH (09:42)
[2017-10-28] MEDS: Acetaminophen TAB* 325 MG PO PRN (09:44)
[2017-10-28] MEDS: amLODIPine TAB* 5 MG PO SCH (09:45)
[2017-10-28] MEDS: Omeprazole CAP* 20 MG PO SCH (09:45)
--- NOTE | 2017-10-30 00:31 | DS ---
CC: Dr. Oneal * DISCHARGE SUMMARY: DATE OF ADMISSION: 10/25/17 DATE OF DISCHARGE: 10/28/17 PRIMARY CARE PROVIDER: Dr. Oneal. MY ATTENDING PHYSICIAN WHILE IN THE HOSPITAL: Alyssa Hanson DO * (DICTATED BY TAYLOR CATALAN) PRIMARY DISCHARGE DIAGNOSES: 1. Mechanical fall. 2. Subarachnoid hemorrhage. 3. Right facial laceration. SECONDARY DISCHARGE DIAGNOSES: 1. Hypertension. 2. History of breast cancer. 3. Anemia. STUDIES DONE WHILE IN THE HOSPITAL: An echocardiogram 10/25/17 shows normal sinus rhythm, no ST segment changes, normal axis, rate of 72, QTc of 439, no T- wave inversions or other abnormalities. Repeat EKG from 10/26/17 shows no significant changes, new rate of 61, QTc 447. Brain CT from 10/25/17 read as small subarachnoid hemorrhage and a small amount of periventricular hemorrhage in the occipital horn of the right lateral ventricle. The pattern is nonaneurysmal and likely related to history of recent trauma, chronic small vessel ischemic changes. 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 Transthoracic echocardiogram from 10/25/17 read as left ventricular chamber size normal, normal left ventricular systolic function. Estimated ejection fraction 55% to 60%, left atrium mildly dilated, mild mitral regurgitation, mild tricuspid regurgitation, evidence for mild pulmonary hypertension. Brain CT from 10/26/17 read as minimal residual subarachnoid hemorrhage and intraventricular hemorrhage decreased from previous examination. MEDICATIONS AT DISCHARGE: 1. Omeprazole 20 mg p.o. daily. 2. Amlodipine 5 mg p.o. daily. 3. Zestoretic 20/12.5 mg 1 tab p.o. daily. 4. Calcium carbonate D3, 1 tab p.o. daily. 5. Tylenol 650 mg p.o. q.4 hours as needed. 6. Oxycodone 5 mg p.o. q.6 hours as needed. 7. Zofran ODT 4 mg p.o. q.6 hours as needed. HOSPITAL COURSE: This is a brief summary of the patient's presentation. For more details, please see the history and physical from Desean Franco NP, on . In brief, the patient is a 77-year-old female with past medical history significant for the above, who was in her normal state of health, was hanging curtains and locked out the door and does not remember anything except that she woke up on the ground. The curtains were askew according to her . She did hit her head and had a laceration over her eye. The patient denied any prodromal symptoms, any other symptoms recently. The patient had headache and nausea after the trauma. The patient was found to have subarachnoid hemorrhage as above. The patient was admitted to the hospital due to intracranial hemorrhage, which decreased on CT scan. The patient had headache, dizziness, and nausea. The patient was able to ambulate with contact guard assist. The patient took Tylenol and tramadol and oxycodone for the pain. The patient had no other neurological deficits. The patient had nausea which responded to Zofran. The patient improved from 217 to 218. The patient's laboratory data through her whole hospitalization was benign. The patient had no signs of infection. The patient had negative troponins x2. The patient had no white blood cell count. The patient's telemetry showed nothing of note. The patient did not feel that she was able to go home on 10/27/17 due to persistent nausea. This improved significantly over the next day and was responsive to Zofran. The patient had no other complaints or no other neurological deficits like falls. The patient was amenable to discharge home on 10/28/17. PHYSICAL EXAMINATION ON THE DAY OF DISCHARGE: General: The patient is a 77- year- old female with obvious facial laceration and ecchymosis of her right side of her eye. Vitals: At the time of discharge, temperature 98.0, pulse rate 70, respiratory rate 17, oxygen saturation 92% on room air, blood pressure 139/73. HEENT: Head: Normocephalic. Ecchymosis surround the eye as above. No other intracranial trauma or crepitus. No evidence of facial fracture or deformity. Nasal mucosa moist. Oral mucosa moist. No pharyngeal erythema, discharge or exudates. No trauma to the teeth or gums. No pharyngeal erythema , exudates or discharge. Neck: Supple. Nontender, no lymphadenopathy. No carotid bruits auscultated. No spinous process tenderness. Skin: Clean, dry, and intact. Cardiac: Regular rate and rhythm. No clicks, murmurs, gallops, or rubs. Pulses 2+ in bilateral dorsalis pedis, posterior tibialis, and radial areas. No lower extremity edema noted. Respiratory: Clear to auscultation bilaterally. No wheezes, rales, or rhonchi. Good air exchange bilaterally. Abdomen: Soft, nontender, nondistended. Bowel sounds present. Normoactive in all 4 quadrants. No hepatosplenomegaly. No abdominal bruits auscultated. Genitourinary: No suprapubic tenderness, no CVA tenderness. Neuro: Cranial nerves II through XII intact. The patient has except for a slight decrease in forehead wrinkling on the right side around the area of ecchymosis, without other abnormalities. Reflexes within normal limits. Babinski's downgoing bilaterally. No weakness noted. Normal gait. Negative Romberg. Cerebellar testing performed without complication. Psychiatric: Pleasant and cooperative. LABORATORY DATA: On day of discharge, white blood cell count 7.2, hemoglobin 12.9, platelet count 189,00. INR 0.97. Sodium 129, chloride 97, potassium 3.5 , carbon dioxide 25, anion gap 7, BUN 10, creatinine 0.65, glucose 105, calcium 9.0. DISCHARGE PLAN: The patient will be discharged to home. The patient has significantly decreased nausea and headache which are controlled with oral pain medications, antiemetics as above. The patient still feels a little unsteady on her feet and agrees to walk with her for the first couple of days until she feels more steady. The patient should avoid antiplatelet agents including NSAIDs for 2 weeks. The patient should follow up with primary care provider within 1 week for general medical management. The patient should have the sutures on her face removed on 10/30/17 with her primary care provider. The patient can wash her wound gently with soap and water. The patient should return to the hospital for neurological deficits, chest pain, shortness of breath, or other alarming symptoms. The patient should have a heart-healthy diet without caffeine. TIME SPENT: Approximately 60 minutes were spent on this discharge, 30 of which spent [id number] with the patient obtaining history and physical and discussing treatment plan. TAYLOR CATALAN [id number]/[facility] #: [id number] [facility] HOSPITALVikki
== END 2017-10-28 11:29 | disposition home or self-care (01) | DRG 84 ==
LOC: ED 08:31 → ICU 12:20 → MEDTELE 10-26 15:31
PROVIDERS: ADMIT Internal Medicine; ATTEND Hospitalist
PROC: 0HQ1XZZ Repair Face Skin, External Approach (ICD-10-PCS; principal; 2017-10-25)
DX: S06.6X9A Traumatic subarachnoid hemorrhage with loss of consciousness of unspecified duration, initial encounter (principal); S06.349A Traumatic hemorrhage of right cerebrum with loss of consciousness of unspecified duration, initial encounter; D64.9 Anemia, unspecified; I08.1 Rheumatic disorders of both mitral and tricuspid valves; I27.20 Pulmonary hypertension, unspecified; I10 Essential (primary) hypertension; S01.111A Laceration without foreign body of right eyelid and periocular area, initial encounter; W19.XXXA Unspecified fall, initial encounter; R11.0 Nausea; Z96.641 Presence of right artificial hip joint; M25.551 Pain in right hip; H26.9 Unspecified cataract; S06.0X9A Concussion with loss of consciousness of unspecified duration, initial encounter; Y92.009 Unspecified place in unspecified non-institutional (private) residence as the place of occurrence of the external cause; Z85.3 Personal history of malignant neoplasm of breast; Z90.710 Acquired absence of both cervix and uterus; Z80.9 Family history of malignant neoplasm, unspecified
CPT/HCPCS: 36415; 70450; 72125; 72192; 80048; 80053; 81003; 81015; 82550; 84484; 85025; 85610; 87077; 87086; 87186; 87641; 90715; 93005; 93306; 94760; 99284; A9270-GY; J2270; J2405

== ENCOUNTER 2017-11-02 11:54 | Emergency (ER) | payer MEDICARE | END 2017-11-02 12:24 | disposition left against medical advice (07) | LOC: UCEAST 11:54 | DX: R10.9 Unspecified abdominal pain (principal); Z53.21 Procedure and treatment not carried out due to patient leaving prior to being seen by health care provider ==

== ENCOUNTER 2017-11-02 12:21 | Emergency (ER) | payer MEDICARE ==
[2017-11-02] MEDS ORDERED: Lidocaine 2% JELLY* 10 ML JELLY TOPICAL ONE (13:38)
[2017-11-02] MEDS ORDERED: Lidocaine 2% JELLY* 6 ML JELLY TOPICAL ONE (14:00)
--- NOTE | 2017-11-02 15:08 | ED ---
Neli Toth Nilda, scribed for Adilson Andreson MD on 11/02/17 at 1346 . GI/ HPI - HPI Summary HPI Summary: This patient is a 77 year old F [facility] by with a chief complaint of constant constipation for the past 3 days. The patient rates the pain 2/10 in severity. Symptoms aggravated and alleviated by nothing including stool softener for the past two days. Patient denies vomiting and abd pain. She denies previous similar episode. states patient was recently discharged from [facility] for concussion last week and has been on Oxycodone (last taken a few days ago). - History of Current Complaint Chief Complaint: EDAbdPain Stated Complaint: CONSTIPATION Hx Obtained From: Patient, Family/Medication Administration Professional - Onset/Duration: Started Days Ago, Still Present Timing: Constant Pain Intensity: 2 Associated Signs and Symptoms: Positive: Other: - constipation; negative abd pain and vomiting Aggravating Factor(s): Nothing Alleviating Factor(s): Nothing - Additional Pertinent History Primary Care Physician: [id number] - Allergy/Home Medications Allergies/Adverse Reactions: Allergies Allergy/AdvReac Type Severity Reaction Status Date / Time No Known Allergies Allergy Verified 10/25/17 08:41 Home Medications: Home Medications Triamcinolone 0.1% OINT(NF) [Kenolog 0.1% OINT(NF)] 1 applic TOPICAL DAILY 11/02 [History Confirmed 11/02/17] PMH/Surg Hx/FS Hx/Imm Hx Endocrine/Hematology History: Reports: Hx Anemia - DAILY IRON FOR Denies: Hx Diabetes Cardiovascular History: Reports: Hx Hypertension - ON MEDICATION FOR Denies: Hx Pacemaker/ICD History: Reports: Hx Kidney Infection - FALL-2013 Denies: Hx Renal Disease Sensory History: Reports: Hx Cataracts - BILATERAL, Hx Contacts or Glasses - GLASSES Denies: Hx Hearing Aid Opthamlomology History: Reports: Hx Cataracts - BILATERAL, Hx Contacts or Glasses - GLASSES Psychiatric History: Denies: Hx Panic Disorder - Cancer History Cancer Type, Location and Year: Rt BREAST Hx Chemotherapy: No Hx Radiation Therapy: Yes - [facility] AT [facility] - Surgical History Surgery Procedure, Year, and Place: VEIN STRIPPING BILATERAL. HYSTERECTOMY. TONSILECTOMY. Rt BREAST LUMPECTOMY- W/ 1 LYMPH NODE REMOVED -2010- MALIGNANT W / RADTION TREATMENT ALSO Lt LUMPECTOMY - 1970s - BENIGN. 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 APPENDECTOMY. RIGHT RUDDY Hx Anesthesia Reactions: No Infectious Disease History: No Infectious Disease History: Denies: Traveled Outside the [place] in Last 30 Days - Family History Known Family History: Positive: Other - Patient denies relevant FHx - Social History Alcohol Use: Occasionally Substance Use Type: Reports: None Smoking Status (MU): Never Smoked Tobacco Review of Systems Negative: Shortness Of Breath Positive: Other - constipation. Negative: Abdominal Pain, Vomiting Negative: Headache All Other Systems Reviewed And Are Negative: Yes Physical Exam - Summary Physical Exam Summary: VITAL SIGNS: Reviewed. GENERAL: Patient is a well-developed and nourished female who is lying comfortable in the stretcher. Patient is not in any acute respiratory distress. HEAD AND FACE: No signs of trauma. No ecchymosis, hematomas or skull depressions. No sinus tenderness. EYES: PERRLA, EOMI x 2, No injected conjunctiva, no nystagmus. EARS: Hearing grossly intact. Ear canals and tympanic membranes are within normal limits. MOUTH: Oropharynx within normal limits. NECK: Supple, trachea is midline, no adenopathy, no JVD, no carotid bruit, no c- spine tenderness, neck with full ROM. CHEST: Symmetric, no tenderness at palpation LUNGS: Clear to auscultation bilaterally. No wheezing or crackles. CVS: Regular rate and rhythm, S1 and S2 present, no murmurs or gallops appreciated. ABDOMEN: Soft, non-tender. No signs of distention. No rebound no guarding, and no masses palpated. Bowel sounds are hypoactive. Rectal exam: fecal impaction. Nurse Diamond present during rectal examination. EXTREMITIES: FROM in all major joints, no edema, no cyanosis or clubbing. NEURO: Alert and oriented x 3. No acute neurological deficits. Speech is normal and follows commands. SKIN: Dry and warm, old ecchymosis on right side of face Triage Information Reviewed: Yes Vital Signs On Initial Exam: Initial Vitals Temp Pulse Resp BP Pulse Ox 98 F 62 26 110/64 100 11/02/17 12:28 11/02/17 12:28 11/02/17 12:28 11/02/17 12:28 11/02/17 12:28 Vital Signs Reviewed: Yes Diagnostics - Vital Signs Vital Signs Temp Pulse Resp BP Pulse Ox 11/02/17 12:28 98 F 62 26 110/64 100 - Laboratory Lab Statement: Any lab studies that have been ordered have been reviewed, and results considered in the medical decision making process. GIGU Course/Dx - Course Assessment/Plan: Pt is a 77 y/o who came in because she has not had BM for 3 days. Pt was treated with soap shakila enema and had a large BM. Pt feels better and will be D/C with Dx of constipation/fecal impaction. - Diagnoses Provider Diagnoses: Constipation, Fecal impaction Discharge - Discharge Plan Condition: Stable Disposition: HOME Patient Education Materials: Constipation (ED), Fecal Impaction (ED) Referrals: Reynold Oneal MD [Primary Care Provider] - 3 Days Additional Instructions: RETURN TO THE EMERGENCY DEPARTMENT FOR CHANGING OR WORSENING SYMPTOMS. The documentation as recorded by the Neli bustamante Nilda accurately reflects the service I personally performed and the decisions made by Justin underwood Abdul, MD.
[2017-11-02 16:03] VITALS: BP 133/68
== END 2017-11-02 15:50 | disposition home or self-care (01) ==
LOC: ED 12:21
DX: K56.41 Fecal impaction (principal)
CPT/HCPCS: 99283; A9270-GY

== ENCOUNTER 2018-06-04 16:55 | Emergency (ER) | payer MEDICARE ==
[2018-06-04 17:09] VITALS: BP 152/76
[2018-06-04] MEDS ORDERED: Ondansetron INJ* 2 MG/ML VIAL IV ONE (17:16)
[2018-06-04] MEDS ORDERED: NS 0.9% 1000 ML* 1,000 ML IV ONE (17:18)
[2018-06-04] MEDS ORDERED: Morphine VIAL* 10 MG/ML 1 ML VIAL IV ONE (17:18)
--- NOTE | 2018-06-04 17:23 | UC ---
Cardiac HPI - HPI Summary HPI Summary: 78 yo female presents with epigastric/RUQ pain that began around 1400 today. She tells me that she ate lunch and then about an hour later developed mild RUQ pain that has since progressed to severe pain and is radiating across her upper abdomen and up her right chest. She has never had pain like this in the past. She feels nauseous and has vomited twice when trying to eat or drink. She had a large BM, which did not change her pain. She had a left hip replacement about 3 weeks ago and has been doing well with this. She has been taking oxycodone for her pain - last took this morning. Denies fever, chills, SOB, chest pain, or dizziness. No hx of gallbladder dz. - History of Current Complaint Chief Complaint: UCAbdominalPain Stated Complaint: ABDOMINAL PAIN Time Seen by Provider: 06/04/18 16:59 Hx Obtained From: Patient Onset/Duration: Sudden Onset Initial Severity: Moderate Current Severity: Severe Pain Intensity: 7 - Allergy/Home Medications Allergies/Adverse Reactions: Allergies Allergy/AdvReac Type Severity Reaction Status Date / Time No Known Allergies Allergy Verified 06/04/18 17:10 Home Medications: Home Medications Aspirin [Aspirin EC] 81 mg PO DAILY 06/04/18 [History Confirmed 06/04/18] PMH/Surg Hx/FS Hx/Imm Hx Cardiovascular History: Hypertension GI/ History: Gastroesophageal Reflux - Surgical History Surgical History: Yes Surgery Procedure, Year, and Place: VEIN STRIPPING BILATERAL. HYSTERECTOMY. TONSILECTOMY. Rt BREAST LUMPECTOMY- W/ 1 LYMPH NODE REMOVED -2010- MALIGNANT W / RADTION TREATMENT ALSO Lt LUMPECTOMY - - BENIGN. 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 APPENDECTOMY. RIGHT RUDDY - Family History Known Family History: Positive: Other - Patient denies relevant FHx - Social History Occupation: Retired Lives: With Family Alcohol Use: Occasionally Substance Use Type: None Smoking Status (MU): Never Smoked Tobacco - Immunization History Most Recent Influenza Vaccination: Fall 2016 Most Recent Pneumonia Vaccination: 2015 Review of Systems Constitutional: Negative Skin: Negative Eyes: Negative ENT: Negative Respiratory: Negative Cardiovascular: Negative Gastrointestinal: Abdominal Pain, Vomiting, Nausea Genitourinary: Negative Neurovascular: Negative Musculoskeletal: Negative Neurological: Negative Psychological: Negative All Other Systems Reviewed And Are Negative: Yes Physical Exam - Summary Physical Exam Summary: GENERAL: NAD. WDWN. No pain distress. SKIN: No rashes, sores, lesions, or open wounds. NECK: Supple. Nontender. No lymphadenopathy. CHEST: CTAB. No r/r/w. No accessory muscle use. Breathing comfortably and in no distress. CV: RRR. Without m/r/g. Pulses intact. Cap refill <2seconds ABDOMEN: Moderate epigastric and RUQ pain. Negative diaz sign. Soft. No distention or guarding. No CVA tenderness. Bowel sounds present NEURO: Alert. PSYCH: Age appropriate behavior. Triage Information Reviewed: Yes Vital Signs: Initial Vital Signs Temp 98.3 F 06/04/18 17:07 Pulse 79 06/04/18 17:07 Resp 18 06/04/18 17:07 BP 152/76 06/04/18 17:07 Pulse Ox 96 06/04/18 17:07 Vital Signs Reviewed: Yes - Assessment/Plan Course Of Treatment: In the clinical course pt was given IV fluids, morphine, and zofran. There is a concern for gallbladder dz and PE/emboli given her hx of cancer and recent surgery. I have advised her to be further evaluated in the ED. Pt was agreeable to this and agreed to ambulance transfer. Report called to Dr. Murray. - Clinical Impression Provider Diagnoses: RUQ abdominal pain. Nausea. Vomiting Discharge - Sign-Out/Discharge Documenting (check all that apply): Patient Departure All imaging exams completed and their final reports reviewed: No Studies - Discharge Plan Condition: Stable Disposition: TRANS HIGHER LVL OF CARE FAC Referrals: Reynold Oneal MD [Primary Care Provider] - - Billing Disposition and Condition Condition: STABLE Disposition: Trans Higher Lvl of Care Fac
== END 2018-06-04 18:00 | disposition short-term general hospital (02) ==
LOC: UCEAST 16:55
DX: R10.11 Right upper quadrant pain (principal); R11.2 Nausea with vomiting, unspecified; Z79.82 Long term (current) use of aspirin
CPT/HCPCS: 93005; 96374; 96375; 99213; G0463; J2270; J2405

== ENCOUNTER 2018-06-04 18:22 | Observation (INO) | payer MEDICARE ==
[2018-06-04] MEDS ORDERED: NS 0.9% 1000 ML* 1,000 ML IV ONE (19:50)
--- NOTE | 2018-06-04 19:52 | ED ---
HPI Chest Pain - HPI Summary HPI Summary: The pt is a 78 y.o female presenting [facility] the [facility] from [facility] with a chief complaint of RUQ pain. As per the triage note, the pt reports pain that radiates from the RUQ to her back. The onset of the pain was 3 hours after eating (The time of the initial pain was 1400 at 06/04/18) and the pt was placed on IV as well as given morphine 4 mg, Zofran 4 mg and saline. Currently, the pt reports improvement from initial status. The patient rates the pain 0/10 in severity currently. Pt states that she has not eaten lunch. No urinary symptoms reported. The symptoms are reported to be novel. Medication was [facility] as per pt report. The pt is pain free at this time. Symptoms aggravated by nothing. Symptoms alleviated by morphine. - History of Current Complaint Chief Complaint: EDAbdPain Time Seen by Provider: 06/04/18 19:20 Hx Obtained From: Patient Onset/Duration: Started Hours Ago Time of Onset: 09:30 Timing: Constant Chest Pain Location: Right Lateral Chest Pain Radiates: Yes Chest Pain Radiates To:: Other - Breasts Aggravating Factor(s): Other: - Inspiration Alleviating Factor(s): Nothing Associated Signs and Symptoms: Positive: Chest Pain - right sided, Other: - Difficulty breathing, " - Additional Pertinent History Primary Care Physician: [id number] - Allergy/Home Medications Allergies/Adverse Reactions: Allergies Allergy/AdvReac Type Severity Reaction Status Date / Time No Known Allergies Allergy Verified 06/04/18 17:10 PMH/Surg Hx/FS Hx/Imm Hx Endocrine/Hematology History: Reports: Hx Anemia - DAILY IRON FOR Denies: Hx Diabetes Cardiovascular History: Reports: Hx Hypertension - ON MEDICATION FOR Denies: Hx Pacemaker/ICD History: Reports: Hx Kidney Infection - FALL-2013 Denies: Hx Renal Disease Sensory History: Reports: Hx Cataracts - BILATERAL, Hx Contacts or Glasses - GLASSES Denies: Hx Hearing Aid Opthamlomology History: Reports: Hx Cataracts - BILATERAL, Hx Contacts or Glasses - GLASSES Psychiatric History: Denies: Hx Panic Disorder - Cancer History Cancer Type, Location and Year: Rt BREAST Hx Chemotherapy: No Hx Radiation Therapy: Yes - [facility]MOSITE AT [facility] - Surgical History Surgery Procedure, Year, and Place: VEIN STRIPPING BILATERAL. HYSTERECTOMY. TONSILECTOMY. Rt BREAST LUMPECTOMY- W/ 1 LYMPH NODE REMOVED -2010- MALIGNANT W / RADTION TREATMENT ALSO Lt LUMPECTOMY - - BENIGN. 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 APPENDECTOMY. RIGHT RUDDY Hx Anesthesia Reactions: No Infectious Disease History: No Infectious Disease History: Denies: Traveled Outside the [place] in Last 30 Days - Family History Known Family History: Positive: Other - Patient denies relevant FHx. Reviewed and noncontributory. - Social History Occupation: Retired Alcohol Use: Occasionally Substance Use Type: Reports: None Smoking Status (MU): Never Smoked Tobacco Review of Systems Constitutional: Negative Eyes: Negative ENT: Negative Positive: Chest Pain - right sided chest pain (Right lateral) Respiratory: Other - "Difficulty breathing" Gastrointestinal: Negative Genitourinary: Negative Musculoskeletal: Other - Right lateral chest pain radiates to the breasts Skin: Negative Neurological: Negative Psychological: Normal All Other Systems Reviewed And Are Negative: Yes Physical Exam - Summary Physical Exam Summary: VITAL SIGNS: Reviewed. GENERAL: Patient is a well-developed and nourished (FEMALE) who is lying comfortable in the stretcher. Patient is not in any acute respiratory distress. HEAD AND FACE: No signs of trauma. No ecchymosis, hematomas or skull depressions. No sinus tenderness. EYES: PERRLA, EOMI x 2, No injected conjunctiva, no nystagmus. EARS: Hearing grossly intact. Ear canals and tympanic membranes are within normal limits. MOUTH: Oropharynx within normal limits. NECK: Supple, trachea is midline, no adenopathy, no JVD, no carotid bruit, no c- spine tenderness, neck with full ROM. CHEST: Symmetric, no tenderness at palpation LUNGS: Clear to auscultation bilaterally. No wheezing or crackles. CVS: Regular rate and rhythm, S1 and S2 present, no murmurs or gallops appreciated. ABDOMEN: Soft, non-tender. No signs of distention. No rebound no guarding, and no masses palpated. Bowel sounds are normal. EXTREMITIES: FROM in all major joints, no edema, no cyanosis or clubbing. NEURO: Alert and oriented x 3. No acute neurological deficits. Speech is normal and follows commands. SKIN: Dry and warm Triage Information Reviewed: Yes Vital Signs On Initial Exam: Initial Vitals Temp Pulse Resp BP Pulse Ox 98.7 F 78 16 142/90 94 09/26/18 18:50 06/04/18 18:50 06/04/18 18:50 06/04/18 18:50 06/04/18 18:50 Vital Signs Reviewed: Yes Diagnostics - Vital Signs Vital Signs Temp Pulse Resp BP Pulse Ox 06/04/18 18:50 98.7 F 78 16 142/90 94 - Laboratory Result Diagrams: 06/04/18 19:22 06/04/18 19:22 Lab Statement: Any lab studies that have been ordered have been reviewed, and results considered in the medical decision making process. - EKG 1808 EKG Rhythm: Sinus Rhythm - 75 bpm EKG Interpretation: T-wave inversion from V1 to V3. EKG Comparison: No Significant Change - from 03/19/17 Chest Pain Course/Dx - Course Course Of Treatment: The pt has a chief complaint of right sided chest pain which reportedly radiates to the breasts. She also states difficulty in breathing. Discharge - Discharge Plan Referrals: Reynold Oneal MD [Primary Care Provider] - - Attestation Statements Document Initiated by Jake: Yes
[2018-06-04 19:53] LABS: ABS Basophils 0 10^3/ul (0-0.2); ABS Eosinophils 0 10^3/ul (0-0.6); ABS Lymphocytes 0.5 10^3/ul (1.0-4.8); ABS Monocytes 0.3 10^3/ul (0-0.8); ABS Neutrophils 7.8 10^3/ul (1.5-7.7); ABS Nucleated RBC 0 10^3/ul; Eosinophil % 0.2 % (0-6); Hematocrit 35 % (35-47); Hemoglobin 11.6 g/dl (12.0-16.0); Lymphocyte % 6.1 % (25-47); Mean Corpuscular HGB Conc 33 g/dl (31-36); Mean Corpuscular Hemoglobin 29 pg (27-31); Mean Corpuscular Volume 88 fL (80-97); Mean Platelet Volume 8.9 um3 (7.4-10.4); Nucleated Red Blood Cells % 0; Platelet Count 245 10^3/ul (150-450); Red Blood Count 4.03 10^6/ul (4.00-5.40); Red Cell Distribution Width 14 % (10.5-15); White Blood Count 8.6 10^3/ul (3.5-10.8)
[2018-06-04 19:56] LABS: EGFR Non-African American 82.5 (>60)
--- NOTE | 2018-06-04 20:12 | ED ---
Abdominal Pain/Female - HPI Summary HPI Summary: The pt is a 78 y.o female presenting to the [facility] from [facility] with a chief complaint of RUQ pain. As per the triage note, the pt reports pain that radiates from the RUQ to her back. The onset of the pain was 3 hours after eating (The time of the initial pain was 1400 at 06/04/18) and the pt was placed on IV as well as given morphine 4 mg, Zofran 4 mg and saline. Currently, the pt reports improvement from initial status. The patient rates the pain 0/10 in severity currently. Pt states that she has not eaten lunch. No urinary symptoms reported. The symptoms are reported to be novel. Medication was taken prior to [facility] arrival as per pt report. The pt is pain free at this time. Symptoms aggravated by nothing. Symptoms alleviated by morphine. - History of Current Complaint Chief Complaint: EDAbdPain Stated Complaint: ABD PAIN Time Seen by Provider: 06/04/18 19:20 Hx Obtained From: Patient Onset/Duration: Lasting Hours - 1400 today, Resolved Timing: Constant Severity Currently: None Pain Intensity: 0 Pain Scale Used: 0-10 Numeric Location: Other - RUQ abd Aggravating Factor(s): Nothing Alleviating Factor(s): Medications - morphine Associated Signs and Symptoms: Positive: Negative Allergies/Adverse Reactions: Allergies Allergy/AdvReac Type Severity Reaction Status Date / Time No Known Allergies Allergy Verified 06/04/18 17:10 PMH/Surg Hx/FS Hx/Imm Hx Endocrine/Hematology History: Reports: Hx Anemia - DAILY IRON FOR Denies: Hx Diabetes Cardiovascular History: Reports: Hx Hypertension - ON MEDICATION FOR Denies: Hx Pacemaker/ICD History: Reports: Hx Kidney Infection - FALL-2013 Denies: Hx Renal Disease Sensory History: Reports: Hx Cataracts - BILATERAL, Hx Contacts or Glasses - GLASSES Opthamlomology History: Reports: Hx Cataracts - BILATERAL, Hx Contacts or Glasses - GLASSES Psychiatric History: Denies: Hx Panic Disorder - Cancer History Cancer Type, Location and Year: Rt BREAST Hx Chemotherapy: No Hx Radiation Therapy: Yes - [facility] - Surgical History Surgery Procedure, Year, and Place: VEIN STRIPPING BILATERAL. HYSTERECTOMY. TONSILECTOMY. Rt BREAST LUMPECTOMY- W/ 1 LYMPH NODE REMOVED -2010- MALIGNANT W / RADTION TREATMENT ALSO Lt LUMPECTOMY - 1970s - BENIGN. 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 APPENDECTOMY. RIGHT RUDDY Hx Anesthesia Reactions: No Infectious Disease History: No Infectious Disease History: Denies: Traveled Outside the [place] in Last 30 Days - Family History Known Family History: Positive: Other - Patient denies relevant FHx Family History: Reviewed and noncontributory - Social History Occupation: Retired Alcohol Use: Occasionally Substance Use Type: Reports: None Smoking Status (MU): Never Smoked Tobacco Review of Systems Constitutional: Negative Eyes: Negative ENT: Negative Cardiovascular: Negative Respiratory: Negative Positive: Abdominal Pain - RUQ abd pain; currently resolved Positive: no symptoms reported Musculoskeletal: Negative Skin: Negative Neurological: Negative Psychological: Normal All Other Systems Reviewed And Are Negative: Yes Physical Exam - Summary Physical Exam Summary: VITAL SIGNS: Reviewed. GENERAL: Patient is a well-developed and nourished (FEMALE) who is lying comfortable in the stretcher. Patient is not in any acute respiratory distress. HEAD AND FACE: No signs of trauma. No ecchymosis, hematomas or skull depressions. No sinus tenderness. EYES: PERRLA, EOMI x 2, No injected conjunctiva, no nystagmus. EARS: Hearing grossly intact. Ear canals and tympanic membranes are within normal limits. MOUTH: Oropharynx within normal limits. NECK: Supple, trachea is midline, no adenopathy, no JVD, no carotid bruit, no c- spine tenderness, neck with full ROM. CHEST: Symmetric, no tenderness at palpation LUNGS: Clear to auscultation bilaterally. No wheezing or crackles. CVS: Regular rate and rhythm, S1 and S2 present, no murmurs or gallops appreciated. ABDOMEN: Soft, non-tender. No signs of distention. No rebound no guarding, and no masses palpated. Bowel sounds are normal. EXTREMITIES: FROM in all major joints, no edema, no cyanosis or clubbing. NEURO: Alert and oriented x 3. No acute neurological deficits. Speech is normal and follows commands. SKIN: Dry and warm Triage Information Reviewed: Yes Vital Signs On Initial Exam: Initial Vitals Temp Pulse Resp BP Pulse Ox 98.7 F 78 16 142/90 94 06/04/18 18:50 06/04/18 18:50 06/04/18 18:50 06/04/18 18:50 06/04/18 18:50 Vital Signs Reviewed: Yes Diagnostics - Vital Signs Vital Signs Temp Pulse Resp BP Pulse Ox 06/04/18 18:50 98.7 F 78 16 142/90 94 - Laboratory Lab Results: Lab Results 06/04/18 06/04/18 06/04/18 Range/Units 19:22 19:22 19:22 WBC 8.6 (3.5-10.8) 10^3/ul RBC 4.03 (4.00-5.40) 10^6/ul Hgb 11.6 L (12.0-16.0) g/dl Hct 35 (35-47) % MCV 88 (80-97) fL MCH 29 (27-31) pg MCHC 33 (31-36) g/dl RDW 14 (10.5-15) % Plt Count 245 (150-450) 10^3/ul MPV 8.9 (7.4-10.4) um3 Neut % (Auto) 90.4 H (38-83) % Lymph % (Auto) 6.1 L (25-47) % [place] % (Auto) 3.0 (0-7) % Eos % (Auto) 0.2 (0-6) % Baso % (Auto) 0.3 (0-2) % Absolute Neuts (auto) 7.8 H (1.5-7.7) 10^3/ul Absolute Lymphs (auto) 0.5 L (1.0-4.8) 10^3/ul Absolute Monos (auto) 0.3 (0-0.8) 10^3/ul Absolute Eos (auto) 0 (0-0.6) 10^3/ul Absolute Basos (auto) 0 (0-0.2) 10^3/ul Absolute Nucleated RBC 0 10^3/ul Nucleated RBC % 0 Sodium 135 (135-145) mmol/L Potassium 3.9 (3.5-5.0) mmol/L Chloride 102 (101-111) mmol/L Carbon Dioxide 26 (22-32) mmol/L Anion Gap 7 (2-11) mmol/L BUN 18 (6-24) mg/dL Creatinine 0.69 (0.51-0.95) mg/dL Est GFR ( Amer) 99.8 (>60) Est GFR (Non-Af Amer) 82.5 (>60) BUN/Creatinine Ratio 26.1 H (8-20) Glucose 164 H (70-100) mg/dL Lactic Acid 2.4 H* (0.5-2.0) mmol/L Calcium 8.9 (8.6-10.3) mg/dL Total Bilirubin 0.90 (0.2-1.0) mg/dL AST 230 H (13-39) U/L ALT Pending Alkaline Phosphatase 108 H (34-104) U/L C-Reactive Protein 4.81 (<8.01) mg/L Total Protein 6.5 (6.4-8.9) g/dL Albumin 3.7 (3.2-5.2) g/dL Globulin 2.8 (2-4) g/dL Albumin/Globulin Ratio 1.3 (1-3) Lipase < 10 L (11.0-82.0) U/L Result Diagrams: 06/04/18 19:22 06/04/18 19:22 Lab Statement: Any lab studies that have been ordered have been reviewed, and results considered in the medical decision making process. - Ultrasound No standard instances Ultrasound Interpretation Completed By: Radiologist - 1. There are echogenic calculi in the gallbladder lumen consistent with cholelithiasis but no abnormal gallbladder wall thickening or pericholecystic fluid, however, a positive sonographic Díaz sign was present and therefore cannot exclude acute cholecystitis. 2. there is an ill-defined mass like lesion or complex cystic lesion adjacent to the left lobe of the liver which could represent prominent bowel in this location, however cannot exclude a complex acute mass involving adjacent structures measuring up to 7.2 cm. May be more accurately assessed with CT abdomen. This radiology report is given by radiologist. - EKG 215 EKG Rhythm: Sinus Rhythm EKG Interpretation: Normal [place], Normal Intervals at 2150 Abdominal Pain Fem Course/Dx - Course Course Of Treatment: The pt has a chief complaint of RUQ abd pain. She recieved a US abd at the [facility]. We discussed pt care with Dr. Bahena at 2132 and he recommended to admit to hospitalist. He will consult tomorrow. We discussed pt admission to [facility] with Dr. Polanco. He accepts pt care. The pt will be admitted to the [facility] with a dx of cholelithiasis. - Diagnoses Provider Diagnoses: Cholelithiasis - Provider Notifications Discussed Care Of Patient With: Wesley Hernandez - 2133: He recommends admitting pt to [facility] and will consult tomorrow Time Discussed With Above Provider: 21:33 Instructed by Provider To: Admit As Observation - Dr. Boswell accepts pt care Discharge - Sign-Out/Discharge Documenting (check all that apply): Patient Departure - Admission to the [facility] - Discharge Plan Condition: Stable Disposition: ADMITTED TO [facility] Referrals: Reynold Oneal MD [Primary Care Provider] - - Attestation Statements Document Initiated by Scribe: Yes Documenting Scribe: Pietro Rice Provider For Whom Scribe is Documenting (Include Credential): Dr. Sharla Anderson Scribe Attestation: IPietro, scribed for Dr. Sharla Anderson on 06/04/18 at 2156.
[2018-06-04] MEDS ORDERED: Morphine INJ* 2 MG/ML 1 ML SYRINGE (TWO MG - NEW SYRINGE VERSION) IV ONE (21:18)
[2018-06-04] MEDS ORDERED: Ondansetron INJ* 2 MG/ML VIAL IV ONE (21:19)
--- NOTE | 2018-06-04 21:22 | RAD ---
EXAM: US Abdomen Limited, Right Upper Quadrant CLINICAL HISTORY: 78 years old, female; Pain; Abdominal pain; Additional info: Biliary colic TECHNIQUE: Real-time ultrasound of the right upper quadrant with image documentation. COMPARISON: No relevant prior studies available. FINDINGS: Liver: There is an ill-defined masslike lesion or complex cystic lesion adjacent to the left lobe of the liver which could represent prominent bowel in this location, however cannot exclude a complex cystic mass involving adjacent structures measuring up to 7.2 cm. May be more accurately assessed with CT abdomen. There is mild hepatomegaly with liver length is 17.5 cm. There is a simple appearing cyst in the left lobe of the liver measuring a maximum of 1.5 cm. No intrahepatic bile duct dilation. Gallbladder: There are echogenic calculi in the gallbladder lumen consistent with cholelithiasis but no abnormal gallbladder wall thickening or pericholecystic fluid, however a positive sonographic Díaz sign was present in therefore cannot exclude acute cholecystitis. Common bile duct: Unremarkable as visualized. No stones. No dilation. Pancreas: The pancreas is not clearly visible, possibly obscured by bowel. Right kidney: Unremarkable. No stones. No solid mass. No hydronephrosis. IMPRESSION: 1. There are echogenic calculi in the gallbladder lumen consistent with cholelithiasis but no abnormal gallbladder wall thickening or pericholecystic fluid, however a positive sonographic Díaz sign was present and therefore cannot exclude acute cholecystitis. 2. There is an ill-defined masslike lesion or complex cystic lesion adjacent to the left lobe of the liver which could represent prominent bowel in this location, however cannot exclude a complex cystic mass involving adjacent structures measuring up to 7.2 cm. May be more accurately assessed with CT abdomen.
[2018-06-04] MEDS ORDERED: Morphine INJ* 4 MG/ML 1 ML SYRINGE (NEW SYRINGE VERSION) ONE (21:26)
[2018-06-04] MEDS ORDERED: Piperacillin/Tazobac ADVAN(*) 3.375 GM in NS 0.9% 100 ML* 100 ML IVPB ONE ×2 (21:44→22:39)
[2018-06-04 22:06] LABS: Urine Appearance Clear; Urine Blood Negative (Negative); Urine Color Yellow; Urine Ketones Negative (Negative); Urine Protein Negative (Negative); Urine Specific Gravity 1.006 (1.010-1.030); Urine Urobilinogen Negative (Negative)
[2018-06-04 22:10] LABS: Urine Red Blood Cell Trace(0-2/hpf) (Absent); Urine White Blood Cell 1+(6-10/hpf) (Absent)
[2018-06-04] MEDS ORDERED: Acetaminophen TAB* 325 MG PO PRN (22:22)
[2018-06-04] MEDS ORDERED: Morphine INJ* 4 MG/ML 1 ML SYRINGE (NEW SYRINGE VERSION) IV PRN (22:22)
[2018-06-04] MEDS ORDERED: Ondansetron INJ* 2 MG/ML VIAL IV PRN (22:22)
[2018-06-04] MEDS ORDERED: NS 0.9% 1000 ML* 1,000 ML IV SCH (22:30)
[2018-06-04] MEDS ORDERED: Iohexol 300* (CONTRAST) 10 ML SDV IV ONE (22:52)
[2018-06-04] MEDS ORDERED: Zosyn per Pharmacy* NOTE FOLLOW UP SCH (23:00)
[2018-06-05 00:12] LABS: INR 0.99 (0.77-1.02)
--- NOTE | 2018-06-05 01:23 | RAD ---
EXAM: CT Abdomen and Pelvis With Intravenous Contrast CLINICAL HISTORY: 78 years old, female; Pain; Abdominal pain; Additional info: Ruq pain, ruq lesion TECHNIQUE: Axial computed tomography images of the abdomen and pelvis with intravenous contrast. All CT scans at this facility use at least one of these dose optimization techniques: automated exposure control; mA and/or kV adjustment per patient size (includes targeted exams where dose is matched to clinical indication); or iterative reconstruction. Coronal and sagittal reformatted images were created and reviewed. CONTRAST: 101 mL of OMNI 300 administered intravenously. COMPARISON: PELV WO CT PELVIS W/O 10/25/2017 12:53 PM FINDINGS: Lung bases: Unremarkable. No mass. No consolidation. Mediastinum: There is a large hiatus hernia. ABDOMEN: Liver: There is a 8 cm low-density lesion in the left lobe of the liver, probably cyst. Gallbladder and bile ducts: There appears to thickening of the gallbladder wall with some loss of definition of the peripheral margins. No calcified stones. No ductal dilation. Pancreas: There is fatty infiltration of the pancreas. Spleen: Unremarkable. No splenomegaly. Adrenals: Unremarkable. No mass. Kidneys and ureters: There is a tiny left renal cortical cyst measuring 3.5 mm. No hydronephrosis. Stomach and bowel: Colonic diverticula are demonstrated but there is no evidence for acute diverticulitis. The cecum lies in the mid abdomen. No obstruction. PELVIS: Appendix: The appendix is not definitely identified. Bladder: The bladder is obscured. Reproductive: Uterus is not visualized. ABDOMEN and PELVIS: Intraperitoneal space: Unremarkable. No free air. No significant fluid collection. Bones/joints: The patient is status post total bilateral hip replacement surgeries with streak artifacts obscured portions of the pelvic anatomy. The total left hip replacement finding is not present on the previous study. No acute fracture. No dislocation. Soft tissues: Unremarkable. Vasculature: Unremarkable. No abdominal aortic aneurysm. Lymph nodes: Unremarkable. No enlarged lymph nodes. IMPRESSION: There appears to be thickening of the gallbladder wall with indistinct margin, raising the possibility of acalculous cholecystitis. Colonic diverticulosis. Status post total bilateral hip replacement surgery with streak artifact obscured portions of the pelvic anatomy. Large hiatus hernia. Focal hepatic lesion, probably cyst.
[2018-06-05 02:52] LABS: INR 0.98 (0.77-1.02)
[2018-06-05] MEDS: ZOSYN 3.375 GM Q8H per EXTENDED INFUSION IVPB SCH ×6 (03:19→19:32)
--- NOTE | 2018-06-05 03:47 | HP ---
CC: Dr. Oneal; Dr. Hernandez * HISTORY AND PHYSICAL: DATE OF ADMISSION: 06/04/18 PRIMARY CARE PROVIDER: Dr. Oneal. MY ATTENDING PHYSICIAN WHILE IN HOSPITAL: Ja Salas MD * (report dictated by Desean Franco NP) CONSULTING GENERAL SURGEON: Dr. Hernandez. CHIEF COMPLAINT: Abdominal pain. HISTORY OF PRESENT ILLNESS: Mrs. Byrd is a 78-year-old female patient. She is presenting today with complaints of right upper quadrant abdominal pain. She carries a history of hypertension, breast cancer, anemia, nephrolithiasis, intracranial hemorrhage in the past from a trauma. It was diagnosed in October 2017, hiatal hernia and history of GERD. She says that today she had a large breakfast around 10 o'clock to 11 o'clock. She had 2 eggs, 2 [place] toasts, and sausage. Around 2 o'clock, she started noticing, she is having right upper quadrant, she describes it as a sharp stabbing pain that just was not getting any better. It persisted and kept getting worse throughout the next couple of hours. She said by 4 o'clock, it had not gone away, so she was concerned and she says that the pain was just not getting any better. She was concerned and decided to come in. She denied any chest pain. She says that typically she can walk up a flight of stairs, no chest pain. She had no shortness of breath. She says that the pain was mostly in her upper quadrant, wrapped around to her right side and then went up into her shoulder on the right side. She denies having any fevers or chills. No shortness of breath. No dysuria. No lower abdominal pain and again, no nausea or vomiting. She was concerned because of the pain, it was ultimately found that she had cholelithiasis. In addition to this, her LFTs were mildly elevated. There was concern for biliary colic, we were asked to evaluate for admission. PAST MEDICAL HISTORY: Significant for: 1. Hypertension. 2. Breast cancer. 3. Anemia. 4. Nephrolithiasis. 5. Intracranial hemorrhage. 6. Hiatal hernia. 7. GERD. PAST SURGICAL HISTORY: 1. She has had a hysterectomy. 2. Appendectomy. 3. Right total hip arthroplasty. 4. Left total hip arthroplasty. 5. Bilateral venous stripping. 6. Lumpectomy. HOME MEDICATIONS: These need to be clarified. I do not have an accurate list with me currently; but according to Saleem, she is on: 1. Amlodipine 5 mg p.o. daily. 2. Lisinopril/hydrochlorothiazide 1 tablet p.o. daily. 3. Omeprazole 20 mg daily. 4. Oxycodone 5 mg every 6 hours as needed for pain. According to old list, she was on aspirin 81 mg p.o. daily. ALLERGIES TO MEDICATIONS: Include no known drug allergies. FAMILY HISTORY: Mother had a history of breast cancer. Father's history is unknown, he left at the age of 16. SOCIAL HISTORY: She does not smoke. She does not drink. Surrogate decision maker is her . REVIEW OF SYSTEMS: There is no documented fever. She is denying having any significant weight change. There was no double vision. She denies having any ear discharge. There is no rhinorrhea. She denies having any sore throat. There is no thyroid enlargement. She, again denied having any chest pain. There is no orthopnea. There is no nocturnal dyspnea. She does admit to abdominal pain per my HPI. There is no nausea. There is no vomiting. There is no dysuria, no frequency. Again, no seizure, no loss of consciousness. No pruritus and no skin ulcerations. Review of 14 systems was completed; all others negative. PHYSICAL EXAMINATION GENERAL: At this time, Mrs. Byrd is a 78-year-old female patient. She is sitting in the ED stretcher. She does not appear to be in any acute distress. She appears to be well nourished and well developed. VITAL SIGNS: Blood pressure 154/97, pulse 95, respirations 16, O2 sat 97%, temperature of 98.7. HEENT: Head: Atraumatic and normocephalic. Eyes: EOMs are intact. Sclerae are anicteric and not pale. Throat, oral mucosa appears to be moist. No oropharyngeal erythema. NECK: Supple. LUNGS: Clear to auscultation bilaterally. No wheezes, rales, or rhonchi. HEART: Sounds S1, S2. She had a regular rate and rhythm. No murmurs, rubs, or gallops. ABDOMEN: Soft, it was flat, nontender. Bowel sounds were present. EXTREMITIES: Pulses were 2+ throughout. She had no peripheral edema. She is able to move all 4 extremities with 5/5 strength. NEUROLOGICAL: The patient is awake, alert. She is oriented x3. She had no gross focal deficits. SKIN: Intact. DIAGNOSTIC STUDIES/LAB DATA: Labs, WBC of 8.6, RBC of 4.03, hemoglobin of 11.6 , hematocrit of 35, platelet count of 245. Sodium is 135, potassium is 3.9, chloride of 102, bicarb was 26, BUN was 18, creatinine of 0.69. Glucose 154, lactate 2.4, calcium 8.9. Total bili 0.9, AST 230, ALT 117, alk phos 108, albumin 3.7, lipase was negative. Urine shows low specific gravity, 1+ leukocyte esterase, 1+ wbc's, absent urine bacteria. She had an abdominal ultrasound obtained today, impression, there is echogenic calculi in the bladder lumen, consistent with cholelithiasis, but no abnormal gallbladder wall thickening or pericholecystic fluid, however, positive sonographic Díaz's sign was present, therefore, cannot exclude acute cholecystitis. There is an ill-defined, mass-like lesion, a complex cystic lesion adjacent to the left lobe of the liver, which could represent prominent bowel in the location, however, cannot exclude a complex cystic mass involving adjacent structures, measuring up to 7.2 cm, may be more accurately assessed with CT abdomen and pelvis. She had a chest x-ray obtained today, under my review and also an EKG. EKG under my review shows a sinus tachycardia at the rate of 102. She had no ST elevations noted and no T-wave inversions. I reviewed it with EKG from earlier today, again, it appears to be unchanged with the exception tachycardia is new. It is reviewed also to an EKG from October this year, appears to be similar, exception the rate is faster at 102. She had a chest x-ray, when I reviewed, I did not appreciate any acute infiltrates or pleural effusions. Old medical records reviewed. ASSESSMENT AND PLAN: Mrs. Byrd is a 78-year-old female patient coming in to the ED today with complaints of upper quadrant abdominal pain, and ultrasound with a positive Díaz's sign, in addition to this, cholelithiasis. She will be admitted under observation status for: 1. Biliary colic. Again, at this point, she does have a positive Díaz's sign. There is no fluid on the gallbladder, though on imaging, there is left shift on her CBC. So, I think, empirically I will put her on Zosyn and her lactate was mildly elevated. She has no fever here, we will monitor her. I did touch base with Dr. Hernandez. She will be n.p.o. Normal saline has been ordered. I am going to get a CT abdomen and pelvis to further evaluate the liver lesion, to better characterize it, make her n.p.o. and allow for bowel rest. I have ordered p.r.n. Zofran, p.r.n. morphine, ordered IV fluids and I will continue to follow her. In terms of her RCRI, she again, has no active cardiac symptoms. EKG appears to be stable. Chest x-ray appears to be stable. She is medically optimized for the proposed procedure. 2. Hypertension. We will continue her current meds as prescribed. We will try to get an accurate list. 3. History of breast cancer. Follow up with PCP. 4. History of anemia. H and H is stable. We will monitor. 5. History of nephrolithiasis. Not an active issue. 6. History of intracranial hemorrhage. Not an active issue currently. This was from a trauma in the past. We will monitor. 7. Hiatal hernia and gastroesophageal reflux disease. Continue PPI therapy. 8. DVT prophylaxis. She is high risk for deep vein thrombosis. She did have an Ortho surgery about a month ago, so at this point, I do think it is warranted to go ahead and start the heparin subcu every 8 hours in the setting of an intracranial hemorrhage. Again, the intracranial hemorrhage was almost a year ago, so , we can go ahead and continue this. I did discuss this with my attending, they are in agreement. 9. Fluids, electrolytes, and nutrition. She will be n.p.o. 10. Code status. She is a full code. TIME SPENT: Time spent on admission was 60 minutes, greater than half the time was spent [id number] with the patient obtaining my history and physical; other half time was spent going over the plan of care with the patient and implementing the plan of care. I did discuss the plan of care with my attending, Dr. Salas; he is in agreement. DESEAN FRANCO NP [id number]/[facility] #: [id number] [facility] HE[facility] SERVICESVikki
[2018-06-05 05:20] LABS: ABS Basophils 0 10^3/ul (0-0.2); ABS Eosinophils 0.1 10^3/ul (0-0.6); ABS Lymphocytes 0.9 10^3/ul (1.0-4.8); ABS Monocytes 0.4 10^3/ul (0-0.8); ABS Neutrophils 2.8 10^3/ul (1.5-7.7); ABS Nucleated RBC 0 10^3/ul; Eosinophil % 1.6 % (0-6); Hematocrit 32 % (35-47); Hemoglobin 10.7 g/dl (12.0-16.0); Lymphocyte % 21.1 % (25-47); Mean Corpuscular HGB Conc 34 g/dl (31-36); Mean Corpuscular Hemoglobin 29 pg (27-31); Mean Corpuscular Volume 87 fL (80-97); Mean Platelet Volume 8.5 um3 (7.4-10.4); Nucleated Red Blood Cells % 0; Platelet Count 237 10^3/ul (150-450); Red Blood Count 3.68 10^6/ul (4.00-5.40); Red Cell Distribution Width 14 % (10.5-15); White Blood Count 4.3 10^3/ul (3.5-10.8)
[2018-06-05 05:38] LABS: EGFR Non-African American 93.3 (>60)
[2018-06-05] MEDS: Heparin VIAL(*) 5000 UNITS/ML VIAL (FIVE THOUSAND) SUBCUT SCH ×2 (06:21→16:12)
[2018-06-05] MEDS: Omeprazole CAP* 20 MG PO SCH (07:29)
--- NOTE | 2018-06-05 10:11 | PN ---
Subjective Date of Service: 06/05/18 Interval History: Ms. Byrd reports feeling better this morning. Her pain has decreased significantly, with essentially no pain at the time of exam. She slept well overnight. No chest pain, SOB, N/V/D. She is aware of the plan for surgical consult this morning. Family History: Unchanged from Admission Social History: Unchanged from Admission Past Medical History: Unchanged from Admission Objective Active Medications: Acetaminophen (Tylenol Tab*) 650 mg PO Q4H PRN Heparin Sodium (Porcine) (Heparin Vial(*)) 5,000 units SUBCUT Q8HR ALEXIA Piperacillin Sod/Tazobactam (Sod 3.375 gm/ Sodium Chloride) 100 mls @ 25 mls/ hr IVPB Q8H ALEXIA Morphine Sulfate (Morphine Inj (Syringe)*) 2 mg IV Q4H PRN Omeprazole (Prilosec Cap*) 20 mg PO DAILY@0730 ALEXIA Ondansetron HCl (Zofran Inj*) 4 mg IV Q6H PRN Pharmacy Consult (Zosyn Per Pharmacy*) 1 note FOLLOW UP .ZOSYN PER PHARMACY [facility] Vital Signs - 8 hr 06/05/18 06/05/18 06/05/18 03:18 07:34 08:00 Temperature 99.1 F 98.6 F Pulse Rate 88 76 Respiratory 16 16 16 Rate Blood Pressure 131/78 121/66 (mmHg) O2 Sat by Pulse 96 96 Oximetry Oxygen Devices in Use Now: None Appearance: Elderly female sitting in bed in no acute distress. Eyes: No Scleral Icterus, PERRLA Ears/Nose/Mouth/Throat: Mucous Membranes Moist Neck: NL Appearance and Movements; NL JVP, Trachea Midline Respiratory: Symmetrical Chest Expansion and Respiratory Effort, Clear to Auscultation Cardiovascular: NL Sounds; No Murmurs; No JVD, RRR, No Edema Abdominal: No Hepatosplenomegaly, - - Nondistended, mild pain to palpation of the RUQ, normoactive bowel sounds Extremities: No Edema Skin: No Rash or Ulcers Neurological: Alert and Oriented x 3 Lines/Tubes/Other Access: Clean, Dry and Intact Peripheral IV Result Diagrams: 06/05/18 05:03 06/05/18 05:03 Assess/Plan/Problems-Billing Assessment: Ms. Byrd is a 78yo female with PMH of HTN, breast cancer, anemia, GERD, and intracranial hemorrhage in 2017 who presents with abdominal pain, found to have cholelithiasis and elevated LFTs. - Patient Problems (1) Cholelithiasis Current Visit: Yes Status: Acute Priority: High Comment: - Questionable cholecystitis - Pain well controlled - LFTs and bilirubin trending up - Appreciate surgical consult (2) HTN (hypertension) Current Visit: Yes Status: Chronic Priority: Medium Code(s): I10 - ESSENTIAL (PRIMARY) HYPERTENSION SNOMED Code(s): 33725269 Comment: - Normotensive - Resume home lisinopril/HCTZ, amlodipine (3) Anemia Current Visit: Yes Status: Acute Code(s): D64.9 - ANEMIA, UNSPECIFIED SNOMED Code(s): 927297506 Comment: - Currently stable, not on home medication - Continue to trend (4) GERD (gastroesophageal reflux disease) Current Visit: Yes Status: Chronic Priority: Medium Code(s): K21.9 - GASTRO-ESOPHAGEAL REFLUX DISEASE WITHOUT ESOPHAGITIS SNOMED Code(s): 665058967 Comment: - Continue omeprazole (5) History of intracranial hemorrhage Current Visit: Yes Status: Chronic Priority: Medium Code(s): Z86.79 - PERSONAL HISTORY OF OTHER DISEASES OF THE CIRCULATORY SYSTEM SNOMED Code(s): 573572495 Comment: - Trauma related in 2017 - Caution with anticoagulation (6) Full code status Current Visit: Yes Status: Acute Priority: High Code(s): Z78.9 - OTHER SPECIFIED HEALTH STATUS SNOMED Code(s): 110552072 (7) DVT prophylaxis Current Visit: Yes Status: Acute Priority: High Code(s): XCZ2741 - SNOMED Code(s): 906321023 Comment: - Heparin SQ Status and Disposition: Observation. Anticipate home when medically stable.
[2018-06-05] MEDS ORDERED: Lidocaine 2% PF * 5 ML VIAL ONE (10:23)
[2018-06-05] MEDS ORDERED: Ketorolac INJ* 30 MG/ML 1 ML VIAL ONE (10:23)
[2018-06-05] MEDS ORDERED: Ondansetron INJ* 2 MG/ML VIAL ONE (10:23)
[2018-06-05] MEDS ORDERED: Propofol* 10 MG/ML 20 ML BTL IV PUSH ONE (10:23)
[2018-06-05] MEDS ORDERED: Dexamethasone IV* 4 MG/ML 1 ML (4 MG) ONE (10:23)
[2018-06-05] MEDS ORDERED: Cisatracurium* 2 MG/ML MDV 5 ML ONE (10:24)
[2018-06-05] MEDS ORDERED: fentaNYL* 50 MCG/ML 2 ML VIAL (100 MCG VIAL) ONE ×4 (10:24→14:24)
[2018-06-05] MEDS ORDERED: Midazolam* 1 MG/ML 5 ML VIAL (5 MG) ONE (10:25)
[2018-06-05] MEDS ORDERED: KETAMINE HCL* 50 MG/ML 10 ML VIAL ONE (10:25)
[2018-06-05] MEDS ORDERED: Aspirin EC TAB* 81 MG TAB.EC PO SCH (11:00)
[2018-06-05] MEDS ORDERED: Bupivacaine 0.25% EPI 200,000* 30 ML SDV ONE (11:16)
[2018-06-05] MEDS ORDERED: Iohexol 180 (CONTRAST) 10 ML SDV IV ONE (11:16)
[2018-06-05] MEDS ORDERED: EPHEDrine (Pressors)* 50 MG/ML VIAL ONE (12:01)
[2018-06-05] MEDS ORDERED: Labetalol IV* 5 MG/ML 20 ML VIAL ONE (12:13)
[2018-06-05] MEDS ORDERED: Iohexol 300 (CONTRAST) 100 ML SDV IV ONE (12:13)
[2018-06-05] MEDS ORDERED: Ondansetron INJ* 2 MG/ML VIAL IV PRN (12:19)
[2018-06-05] MEDS ORDERED: Naloxone* 0.4 MG/ML 1 ML VIAL IV PRN (12:19)
--- NOTE | 2018-06-05 13:57 | RAD ---
INDICATION: Intraoperative cholangiogram. Cholecystectomy. Technique: 23.7 seconds fluoroscopy provided?for the physician proceduralist. REPORT: Cholangiogram performed through the cystic duct stump. Negative for intra or extrahepatic biliary dilatation. No filling defects identified within the contrast pool within the common bile duct to indicate presence of a stone. IMPRESSION: Procedural control films. CPT II Codes: G9500
[2018-06-05] MEDS ORDERED: Morphine INJ* 4 MG/ML 1 ML SYRINGE (NEW SYRINGE VERSION) IV PRN (14:09)
[2018-06-05] MEDS ORDERED: NS 0.9% 1000 ML* 1,000 ML IV SCH (14:15)
[2018-06-05] MEDS: fentaNYL* 50 MCG/ML 2 ML VIAL (100 MCG VIAL) IV PRN ×3 (14:24→14:54)
[2018-06-05] MEDS ORDERED: oxyCODONE/Acetamin 5/325 MG* TAB ONE (14:58)
[2018-06-05] MEDS: oxyCODONE/Acetamin 5/325 MG* TAB PO PRN ×2 (14:59→19:31)
[2018-06-05] MEDS ORDERED: Morphine INJ* 2 MG/ML 1 ML SYRINGE (TWO MG - NEW SYRINGE VERSION) ONE (15:19)
[2018-06-05] MEDS: Lisinopril TAB* 10 MG PO SCH (16:36)
[2018-06-05] MEDS: amLODIPine TAB* 5 MG PO SCH (16:36)
--- NOTE | 2018-06-05 17:24 | RAD ---
Indication: Preop chest x-ray Single frontal portable view of the chest demonstrate no mediastinal shift. Probable hiatal hernia is noted. Lung wall are clear. IMPRESSION: Large hiatal hernia. No definite pneumonia is identified.
[2018-06-06] MEDS: oxyCODONE/Acetamin 5/325 MG* TAB PO PRN ×3 (00:57→12:52)
[2018-06-06] MEDS: ZOSYN 3.375 GM Q8H per EXTENDED INFUSION IVPB SCH ×4 (03:43→12:10)
--- NOTE | 2018-06-06 05:15 | OP ---
CC: Dr. Reynold Oneal * DATE OF OPERATION: 06/05/18 - ROOM #352 DATE OF : 42 SURGEON: Dr. Mccormick. ROLL COVERER: Aissatou Diaz NP ANESTHESIOLOGIST: Dr. Menard. ANESTHESIA: General anesthetic, local infiltration. PRE-OP DIAGNOSIS: Cholecystitis. POST-OP DIAGNOSIS: Cholecystitis. OPERATIVE PROCEDURE: Laparoscopic cholecystectomy and intraoperative cholangiogram. DESCRIPTION OF PROCEDURE: The patient was supine on the operating table. After adequate general anesthetic, compression stockings, Myrna Hugger warmer, and intravenous antibiotics, the abdomen was prepped with antiseptic and draped in a sterile fashion. Local infiltrative anesthesia was administered and small umbilical incision was created. Blunt port cannula was placed. Insufflation was carried out with carbon dioxide. Additional cannulae, 12-mm subxiphoid and 5-mm right upper quadrant and right anterior axillary line were placed through small stab wounds under direct vision. The gallbladder had multiple adhesions around that area and those were taken down until the gallbladder wall was exposed. Adhesions were taken off the gallbladder until the Disha's pouch of the gallbladder was identified and retracting this, it tore and some large stones spilled out. These were retrieved. There was inflammatory reaction around the area of the duct. However, ultimately the cystic artery and duct were identified. The cystic duct was able to be cannulated and an intraoperative cholangiogram was carried out and confirmation with the radiologist was that there was no evidence of any stones. The duct had 3 clips placed on it. The gallbladder was taken off the liver bed using electrocautery and removed in retrieval bag. The operative field was well irrigated with warm saline solution. A total of 6 L of irrigation was carried out. There was a tear in the liver parenchyma that did have a fair amount of bleeding. This was packed with Surgicel and 4x4 gauze and pressure was held and irrigation was carried out. Ultimately, achieved adequate hemostasis. The 4x4 was removed. The Surgicel was left in situ. The operative field was again well irrigated and again inspected carefully. No residual stone material could be identified. The gallbladder was removed through the subxiphoid port and the cannulae were removed. The pneumoperitoneum allowed to escape. The umbilical fascia was closed with 0 Vicryl and skin with 5-0 Vicryl in all cases followed by Steri-Strips. She was awakened and brought to Recovery in good condition. There were no complications. No drains. Pathologic specimen is gallbladder. Sponge and instrument counts correct. Estimated blood loss is 200 mL. [id number]/[facility] #: [id number] [facility]
[2018-06-06 05:50] LABS: ABS Basophils 0 10^3/ul (0-0.2); ABS Eosinophils 0 10^3/ul (0-0.6); ABS Lymphocytes 0.8 10^3/ul (1.0-4.8); ABS Monocytes 0.6 10^3/ul (0-0.8); ABS Neutrophils 5.8 10^3/ul (1.5-7.7); ABS Nucleated RBC 0 10^3/ul; Eosinophil % 0 % (0-6); Hematocrit 28 % (35-47); Hemoglobin 9.1 g/dl (12.0-16.0); Lymphocyte % 11.7 % (25-47); Mean Corpuscular HGB Conc 33 g/dl (31-36); Mean Corpuscular Hemoglobin 29 pg (27-31); Mean Corpuscular Volume 88 fL (80-97); Mean Platelet Volume 8.8 um3 (7.4-10.4); Nucleated Red Blood Cells % 0; Platelet Count 201 10^3/ul (150-450); Red Blood Count 3.15 10^6/ul (4.00-5.40); Red Cell Distribution Width 14 % (10.5-15); White Blood Count 7.3 10^3/ul (3.5-10.8)
[2018-06-06 06:09] LABS: EGFR Non-African American 109.5 (>60)
[2018-06-06] MEDS: Omeprazole CAP* 20 MG PO SCH (08:00)
[2018-06-06] MEDS ORDERED: Hydrochlorothiazide TAB* 25 MG PO SCH (09:00)
[2018-06-06] MEDS: Lisinopril TAB* 10 MG PO SCH (09:51)
[2018-06-06] MEDS: amLODIPine TAB* 5 MG PO SCH (09:51)
--- NOTE | 2018-06-06 11:37 | PN ---
Progress Note - Progress Note Date of Service: 06/06/18 Note: Surgery Progress: Patient doing well. Plan for d/c home today on Augmentin x 5 d. Will also repeat LFTs at followup. See discharge summary.
[2018-06-06 12:22] VITALS: BP 121/63
--- NOTE | 2018-06-06 22:36 | DS ---
CC: Dr. Reynold Oneal * DISCHARGE SUMMARY: DATE OF ADMISSION: 06/04/18 DATE OF DISCHARGE: 06/06/18 ATTENDING SURGEON: Dr. Carmelo Mccormick.* (DICTATED BY TAYLOR MCGUIRE) HOSPITAL COURSE: Please refer to admission history and physical and operative note for details. The patient was admitted on 06/04/18 with what appeared to be biliary colic. She was noted on admission to have significant elevation of her transaminases, which actually increased over the next 24 hours. She was taken to the operating room on 06/05/[address] Mccormick and underwent laparoscopic cholecystectomy. Zosyn was continued during the overnight period and liver function tests had come down somewhat on 06/06/18. At peak on , total bilirubin was 1.3, AST was 720, ALT 467, alkaline phosphatase 145. The morning of discharge, total bilirubin 0.6, AST 346, ALT 455, alkaline phosphatase 134. The patient has had an otherwise uneventful postoperative course and is doing well in terms of pain control and oral intake. PHYSICAL EXAMINATION: As of the morning of discharge, temp 98, blood pressure 129/69, pulse 80, respirations 20, room air saturation 92% to 93%. General: Well- nourished and in no acute distress, sitting up in the chair. Heart: Regular rate and rhythm. Lungs: Few coarse rales at the right base. The remainder of the lung wall are clear. Abdomen: Laparoscopic incision sites look fine under Steri- Strips. No evidence of infection or active bleeding. Abdomen is soft and relatively nontender. IMPRESSION: Status post laparoscopic cholecystectomy for cholecystitis, doing well; ready for discharge. PLAN: Discharged home today on 5 days additional of oral antibiotics ( Augmentin 875 mg b.i.d.). A prescription was also used e-sent to her pharmacy for Percocet p.r.n. for stronger pain. She may use Tylenol and/or Advil p.r.n. for mild-to- moderate pain. She will resume her usual home medications (see medication reconciliation form). She has an appointment for followup with our office on 06/13/18. She will have repeat liver function tests checked on . [place], [place] [id number]/[facility] #: [id number] JANIE
== END 2018-06-06 13:10 | disposition home or self-care (01) ==
LOC: ED 18:22 → SSU 22:15
PROVIDERS: ADMIT Hospitalist; ATTEND Internal Medicine
PROC: 0FT44ZZ Resection of Gallbladder, Percutaneous Endoscopic Approach (ICD-10-PCS; principal; 2018-06-04)
PROC: BF10YZZ Fluoroscopy of Bile Ducts using Other Contrast (ICD-10-PCS; 2018-06-04)
DX: K80.10 Calculus of gallbladder with chronic cholecystitis without obstruction (principal); R10.9 Unspecified abdominal pain; Z79.899 Other long term (current) drug therapy; R10.11 Right upper quadrant pain; R11.2 Nausea with vomiting, unspecified; Z79.82 Long term (current) use of aspirin
CPT/HCPCS: 36415; 71045; 74177; 76000; 76705; 80053; 81003; 81015; 82248; 83036; 83605; 83690; 85025; 85610; 85730; 86140; 87086; 88304; 93005; 96365; 96366; 96375; 99284; A9270-GY; G0378; J1100; J1644; J1885; J2250; J2270; J2405; J2543; J2704; J3010; Q9967